=== PATIENT | female | born 1970 | race African-American/Black ===

== ENCOUNTER 2017-06-25 17:32 | Emergency (ER) | payer OTHER ==
[2017-06-25 18:15] LABS: #Basophils 0.1 thou/uL (0.0-0.2); #Eosinphils 0.4 thou/uL (0.0-0.7); #Lymphocytes 4.1 thou/uL (1.20-3.40); #Monocytes 0.6 thou/uL (0.11-0.59); #Neutrophils 4.2 thou/uL (1.40-6.50); %Lymphocytes 43.6 % (21.0-51.0); %Monocytes 6.6 % (0.0-10.0); Hematocrit 40.9 % (36.0-47.0); Red Blood Cell (RBC) Count 4.16 mill/uL (4.20-5.40); White Blood Cell (WBC) Count 9.4 thou/uL (4.8-10.8)
[2017-06-25 18:36] LABS: ALT (SGPT) 9 U/L (8-55); AST (SGOT) 15 U/L (5-34); Alkaline Phosphatase 107 U/L (40-150); Anion Gap 11 mmol/L (10-20); BUN (Urea Nitrogen) 6 mg/dL (7.0-18.7); Bilirubin, Total 0.2 mg/dL (0.2-1.2); Calc. Creatinine Clearance 0 mL/min (70-130); Carbon Dioxide 24 mmol/L (22-29); Chloride 106 mmol/L (98-107); Estimated GFR-MDRD 86; Globulin 4.6 g/dL (2.4-3.5); Protein, Total 8.5 g/dL (6.0-8.3)
--- NOTE | 2017-06-25 19:27 | CT ---
EXAM: NONCONTRAST HEAD CT 06/25/17 HISTORY: Altered mental status. History of aneurysm repair. Seizures. Patient is having left sided weakness a nd slurred speech. COMPARISON: 05/19/17 TECHNIQUE: Noncontrast head CT is performed from skull base to skull vertex. FINDINGS: No parenchymal hemorrhage. No extra-axial hematoma. No midline shift. Basilar cisterns are patent. S table malacic change involving the right frontal and parietal lobes, near the vertex. Remainder of t he cerebrum demonstrates preservation of cortical leblanc-white matter differentiation. Hypodensity in the left thalamus is noted and is similar to the previous examination. Calvarium is intact. Adequate aeration of the sinuses and mastoid air cells. IMPRESSION: No acute intracranial process. POS: [facility]
== END 2017-06-25 19:50 | disposition home or self-care (01) ==
LOC: ERS 17:32
DX: G83.84 Todd's paralysis (postepileptic) (principal); K21.9 Gastro-esophageal reflux disease without esophagitis; I10 Essential (primary) hypertension; Z79.899 Other long term (current) drug therapy
CPT/HCPCS: 36415; 70450; 80053; 85025

== ENCOUNTER 2017-10-13 23:24 | Emergency (ER) | payer OTHER ==
[2017-10-14 01:32] LABS: #Basophils 0.1 thou/uL (0.0-0.2); #Eosinphils 0.4 thou/uL (0.0-0.7); #Lymphocytes 3.6 thou/uL (1.20-3.40); #Monocytes 0.5 thou/uL (0.11-0.59); #Neutrophils 3.8 thou/uL (1.40-6.50); %Basophils 1.7 % (0.0-1.0); %Eosinophils 4.3 % (0.0-10.0); %Lymphocytes 42.9 % (21.0-51.0); %Monocytes 6.2 % (0.0-10.0); Hemoglobin 11.8 g/dL (12.0-16.0); Mean Corpuscular HGB CONC 32.4 g/dL (32.0-36.0); Mean Corpuscular Hemoglobin 30.8 pg (27.0-31.0); Mean Corpuscular Volume 94.9 fl (81.0-99.0); Mean Platelet Volume 7.4 fL (7.4-10.4); Platelet Count 322 thou/uL (130-400); RBC Distribution Width 12.6 % (11.5-14.5); Red Blood Cell (RBC) Count 3.83 mill/uL (4.20-5.40); White Blood Cell (WBC) Count 8.5 thou/uL (4.8-10.8)
[2017-10-14 01:51] LABS: Anion Gap 10 mmol/L (10-20); BUN (Urea Nitrogen) 7 mg/dL (7.0-18.7); Calc. Creatinine Clearance 0 mL/min (70-130); Calcium 8.5 mg/dL (7.8-10.44); Carbon Dioxide 24 mmol/L (22-29); Chloride 109 mmol/L (98-107); Estimated GFR-MDRD 86; Glucose 104 mg/dL (70-105); Potassium 3.4 mmol/L (3.5-5.1); Sodium 140 mmol/L (136-145)
[2017-10-14 04:37] LABS: Carbamazepine-Tegretol 3.1 ug/mL (4.0-12.0)
--- NOTE | 2017-10-14 07:26 | RAD ---
2 VIEWS CHEST: Date: 10/14/17 COMPARISON: None. HISTORY: Cough. FINDINGS: Two views of the chest show normal sized cardiomediastinal silhouette. There is no evidence of consol idation, mass, or pleural effusion. The bones are unremarkable. IMPRESSION: No evidence of acute cardiopulmonary disease. POS: [facility]
[2017-10-17 15:19] LABS: Topiramate (Topamax) Test 6.9 ug/mL (2.0-25.0)
== END 2017-10-14 03:40 | disposition home or self-care (01) ==
LOC: ERS 23:24
DX: Z03.89 Encounter for observation for other suspected diseases and conditions ruled out (principal); K21.9 Gastro-esophageal reflux disease without esophagitis; I10 Essential (primary) hypertension; Z79.899 Other long term (current) drug therapy
CPT/HCPCS: 36415; 71046; 80048; 80156; 80184; 80201; 85025

== ENCOUNTER 2017-10-19 21:06 | Emergency (ER) | payer OTHER ==
--- NOTE | 2017-10-19 22:33 | RAD ---
PORTABLE CHEST 10/19/17 PROVIDED CLINICAL HISTORY: Seizure. FINDINGS: Comparison is made with the study dated 10/14/17. Cardiac and mediastinal silhouette is within normal limits for portable technique. The lungs are hypo inflated but grossly clear. There is no pleural fluid or pneumothorax apparent. IMPRESSION: No evidence for an acute paloma pulmonary process. POS: [facility]
== END 2017-10-20 00:40 | disposition home or self-care (01) ==
LOC: ERS 21:06
DX: G40.909 Epilepsy, unspecified, not intractable, without status epilepticus (principal); K21.9 Gastro-esophageal reflux disease without esophagitis; I10 Essential (primary) hypertension
CPT/HCPCS: 71045; 93005

== ENCOUNTER 2018-02-08 18:49 | Emergency (ER) | payer OTHER ==
[2018-02-08 19:45] LABS: #Basophils 0.1 thou/uL (0.0-0.2); #Eosinphils 0.4 thou/uL (0.0-0.7); #Lymphocytes 3.8 thou/uL (1.20-3.40); #Monocytes 0.4 thou/uL (0.11-0.59); %Basophils 1.4 % (0.0-1.0); %Eosinophils 5.4 % (0.0-10.0); %Lymphocytes 49.6 % (21.0-51.0); %Monocytes 4.8 % (0.0-10.0); %Neutrophils 38.9 % (42.0-75.0); Hemoglobin 11.8 g/dL (12.0-16.0); Mean Platelet Volume 6.9 fL (7.4-10.4); Platelet Count 251 thou/uL (130-400); RBC Distribution Width 13.3 % (11.5-14.5); Red Blood Cell (RBC) Count 3.67 mill/uL (4.20-5.40); White Blood Cell (WBC) Count 7.7 thou/uL (4.8-10.8)
[2018-02-08 19:54] LABS: ALT (SGPT) 11 U/L (8-55); AST (SGOT) 17 U/L (5-34); Albumin 3.7 g/dL (3.5-5.0); Alkaline Phosphatase 97 U/L (40-150); Anion Gap 12 mmol/L (10-20); BUN (Urea Nitrogen) 7 mg/dL (7.0-18.7); Bilirubin, Total 0.3 mg/dL (0.2-1.2); Calc. Creatinine Clearance 0 mL/min (70-130); Calcium 8.6 mg/dL (7.8-10.44); Carbon Dioxide 20 mmol/L (22-29); Chloride 108 mmol/L (98-107); Estimated GFR-MDRD Greater than 90; Glucose 89 mg/dL (70-105); Potassium 3.3 mmol/L (3.5-5.1); Protein, Total 7.7 g/dL (6.0-8.3); Sodium 137 mmol/L (136-145)
== END 2018-02-08 22:19 | disposition home or self-care (01) ==
LOC: ERS 18:49
DX: R56.9 Unspecified convulsions (principal); K21.9 Gastro-esophageal reflux disease without esophagitis; I10 Essential (primary) hypertension; Z79.899 Other long term (current) drug therapy
CPT/HCPCS: 36415; 36416; 80053; 85025; 99284

== ENCOUNTER 2018-02-19 11:39 | Emergency (ER) | payer OTHER | END 2018-02-19 12:15 | disposition home or self-care (01) | LOC: ERS 11:39 | DX: G40.909 Epilepsy, unspecified, not intractable, without status epilepticus (principal); K21.9 Gastro-esophageal reflux disease without esophagitis; I10 Essential (primary) hypertension; Z79.899 Other long term (current) drug therapy | CPT/HCPCS: 99283 ==

== ENCOUNTER 2018-02-20 19:39 | Emergency (ER) | payer OTHER ==
[2018-02-20 20:15] LABS: #Basophils 0.1 thou/uL (0.0-0.2); #Eosinphils 0.3 thou/uL (0.0-0.7); #Lymphocytes 2.9 thou/uL (1.20-3.40); #Monocytes 0.4 thou/uL (0.11-0.59); #Neutrophils 2.6 thou/uL (1.40-6.50); %Basophils 1.6 % (0.0-1.0); %Eosinophils 5.5 % (0.0-10.0); %Lymphocytes 46.3 % (21.0-51.0); %Monocytes 5.6 % (0.0-10.0); %Neutrophils 41.1 % (42.0-75.0); Hemoglobin 13.6 g/dL (12.0-16.0); Mean Corpuscular HGB CONC 32.9 g/dL (32.0-36.0); Mean Corpuscular Hemoglobin 31.3 pg (27.0-31.0); Mean Corpuscular Volume 95.3 fl (81.0-99.0); Mean Platelet Volume 6.8 fL (7.4-10.4); Platelet Count 285 thou/uL (130-400); RBC Distribution Width 13.7 % (11.5-14.5); Red Blood Cell (RBC) Count 4.35 mill/uL (4.20-5.40); White Blood Cell (WBC) Count 6.3 thou/uL (4.8-10.8)
[2018-02-20 20:40] LABS: ALT (SGPT) 15 U/L (8-55); AST (SGOT) 19 U/L (5-34); Albumin 3.9 g/dL (3.5-5.0); Alkaline Phosphatase 112 U/L (40-150); Anion Gap 11 mmol/L (10-20); BUN (Urea Nitrogen) 8 mg/dL (7.0-18.7); Bilirubin, Total 0.3 mg/dL (0.2-1.2); Calc. Creatinine Clearance 0 mL/min (70-130); Calcium 8.8 mg/dL (7.8-10.44); Carbon Dioxide 20 mmol/L (22-29); Chloride 109 mmol/L (98-107); Estimated GFR-MDRD 71; Globulin 4.7 g/dL (2.4-3.5); Glucose 82 mg/dL (70-105); Protein, Total 8.6 g/dL (6.0-8.3); Sodium 136 mmol/L (136-145)
== END 2018-02-21 01:40 | disposition home or self-care (01) ==
LOC: ERS 19:39
DX: G40.909 Epilepsy, unspecified, not intractable, without status epilepticus (principal); K21.9 Gastro-esophageal reflux disease without esophagitis; I10 Essential (primary) hypertension; Z79.899 Other long term (current) drug therapy
CPT/HCPCS: 80053; 85025; 99406

== ENCOUNTER 2018-02-24 13:03 | Emergency (ER) | payer OTHER ==
[2018-02-24 13:56] LABS: #Basophils 0.1 thou/uL (0.0-0.2); #Eosinphils 0.3 thou/uL (0.0-0.7); #Lymphocytes 2.7 thou/uL (1.20-3.40); #Monocytes 0.4 thou/uL (0.11-0.59); #Neutrophils 2.3 thou/uL (1.40-6.50); %Eosinophils 5.3 % (0.0-10.0); %Lymphocytes 46.8 % (21.0-51.0); %Monocytes 7.4 % (0.0-10.0); %Neutrophils 39.5 % (42.0-75.0); Hemoglobin 13.4 g/dL (12.0-16.0); Mean Corpuscular HGB CONC 32.4 g/dL (32.0-36.0); Mean Corpuscular Hemoglobin 30.5 pg (27.0-31.0); Mean Corpuscular Volume 94.2 fl (81.0-99.0); Platelet Count 275 thou/uL (130-400); RBC Distribution Width 13.5 % (11.5-14.5); White Blood Cell (WBC) Count 5.7 thou/uL (4.8-10.8)
[2018-02-24 14:12] LABS: ALT (SGPT) 11 U/L (8-55); AST (SGOT) 15 U/L (5-34); Albumin 3.9 g/dL (3.5-5.0); Alkaline Phosphatase 108 U/L (40-150); Anion Gap 11 mmol/L (10-20); BUN (Urea Nitrogen) 10 mg/dL (7.0-18.7); Bilirubin, Total 0.3 mg/dL (0.2-1.2); Calc. Creatinine Clearance 0 mL/min (70-130); Calcium 8.9 mg/dL (7.8-10.44); Carbon Dioxide 21 mmol/L (22-29); Chloride 108 mmol/L (98-107); Estimated GFR-MDRD 71; Globulin 4.7 g/dL (2.4-3.5); Glucose 81 mg/dL (70-105); Potassium 3.8 mmol/L (3.5-5.1); Protein, Total 8.6 g/dL (6.0-8.3); Sodium 136 mmol/L (136-145)
--- NOTE | 2018-02-24 14:44 | CT ---
NONCONTRAST HEAD CT: Date: 02/24/18 HISTORY: Seizure. Fall. COMPARISON: 06/25/17. TECHNIQUE: A noncontrast head CT is performed from the skull base to the skull vertex. FINDINGS: Stable malacic and gliotic change involving the right frontal and parietal lobe near the vertex. Stab le hypoattenuation involving the right frontal subcortical white matter. No evidence of intraparenchy mal hemorrhage or extra-axial hematoma. No midline shift. Basilar cisterns are patent. No evidence of hydrocephalus. Adequate aeration of the sinuses and mastoid air cells, with the exception of the med ial left frontal sinus which is partially opacified due to mucus retention cyst. Calvarium is intact. Stable hypoattenuation involving the left frontal subcortical white matter. IMPRESSION: 1. No intracranial post-traumatic sequelae. 2. Stable malacic changes involving the right cerebrum. POS: [facility]
== END 2018-02-24 17:58 | disposition home or self-care (01) ==
LOC: ERS 13:03
DX: R56.9 Unspecified convulsions (principal); K21.9 Gastro-esophageal reflux disease without esophagitis; I10 Essential (primary) hypertension; Z79.899 Other long term (current) drug therapy
CPT/HCPCS: 36415; 70450; 80053; 85025

== ENCOUNTER 2018-04-09 13:48 | Observation (INO) | payer OTHER ==
--- NOTE | 2018-04-09 15:32 | CT ---
CT BRAIN: Date: 04/09/18 PROVIDED CLINICAL HISTORY: Seizure. FINDINGS: Comparison with 02/24/18. The ventricular system is unchanged in size and morphology. Encephalomalacia involving the right chichi etal region is redemonstrated. There is no evidence for intracranial hemorrhage or mass effect. The extracranial soft tissues and osseous structures demonstrate an unremarkable CT appearance. IMPRESSION: No evidence for intracranial hemorrhage or mass effect. POS: [facility]
[2018-04-09 15:53] LABS: Hemoglobin 13.3 g/dL (12.0-16.0); Mean Corpuscular HGB CONC 33.2 g/dL (32.0-36.0); Mean Corpuscular Hemoglobin 32.1 pg (27.0-31.0); Mean Corpuscular Volume 96.6 fL (78.0-98.0); Platelet Count 274 thou/uL (130-400); RBC Distribution Width 13.5 % (11.5-14.5); Red Blood Cell (RBC) Count 4.15 mill/uL (4.20-5.40); White Blood Cell (WBC) Count 6.8 thou/uL (4.8-10.8)
[2018-04-09 16:08] LABS: Eosinophils 7 % (0-10); Lymphocytes 53 % (21-51); MDiff Complete? YES; Monocytes 3 % (0-10); Neutrophil 35 % (42-75); PLT Morphology Comment Appears Adequate; RBC Morphology Normal
[2018-04-09 16:10] LABS: Bilirubin Negative (Negative); Blood, Urine Large (Negative); Clarity CLOUDY (Clear); Glucose, Urine (Dipstick) Negative (Negative); Leukocyte Small (Negative); Nitrite Positive (Negative); Protein, Urine (Dipstick) 30 mg/dL (Neg-Trace); Specific Gravity, Urine 1.016 (1.002-1.036)
[2018-04-09 16:12] LABS: Bacteria/HPF 2+ HPF (None Seen); Hyaline Casts/LPF 0-3 HYALINE CAST LPF (0-3 Hyaline); Pathc Cast-AUWi Flag 0.46 (0-2.49); Pregnancy Test - Urine (BHCG) Negative (Negative); Pregu Control Background? CLEAR/WHITE (CLR/WHITE); Pregu Control Bar Appear? YES (CONTROL BAR); RBC/HPF GREATER THAN 50-TNTC HPF (0-3); Specific Gravity 1.016 (1.002-1.036)
[2018-04-09 16:15] LABS: Amphetamine Not Detected (NotDetected); Barbiturates Screen Detected (NotDetected); Benzodiazepine Screen Not Detected (NotDetected); Cocaine Metabolite Screen Not Detected (NotDetected); Medtox Reader # READER 1; Methadone Not Detected (NotDetected); Methamphetamine Not Detected (NotDetected); Opiate Screen Not Detected (NotDetected); Phencyclidine (PCP) Not Detected (NotDetected); THC/Cannabinoid Screen Not Detected (NotDetected); Tricyclic Screen Not Detected (NotDetected)
[2018-04-09 16:16] LABS: Medtox Control Line Valid? VALID (VALID); Oxycodone Screen Not Detected (NotDetected)
[2018-04-09 16:17] LABS: ALT (SGPT) 14 U/L (8-55); AST (SGOT) 17 U/L (5-34); Albumin 4.1 g/dL (3.5-5.0); Alkaline Phosphatase 120 U/L (40-150); Anion Gap 12 mmol/L (10-20); BUN (Urea Nitrogen) 8 mg/dL (7.0-18.7); Bilirubin, Total 0.2 mg/dL (0.2-1.2); Calc. Creatinine Clearance 0 mL/min (70-130); Calcium 9.1 mg/dL (7.8-10.44); Carbon Dioxide 20 mmol/L (22-29); Chloride 108 mmol/L (98-107); Estimated GFR-MDRD 78; Globulin 4.6 g/dL (2.4-3.5); Glucose 77 mg/dL (70-105); Protein, Total 8.7 g/dL (6.0-8.3); Sodium 136 mmol/L (136-145)
[2018-04-09 16:23] LABS: Acetaminophen Less than 6.0 mcg/mL (10.0-30.0); Alcohol Less than 10 mg/dL (Less than 10); Salicylate Less than 8.0 mg/dL (15.0-30.0)
[2018-04-09] MEDS ORDERED: cefTRIAXone\\ROCEPHIN 1 GM VIAL ONE (21:22)
[2018-04-09 22:13] LABS: Carbamazepine-Tegretol 3.3 ug/mL (4.0-12.0)
[2018-04-09] MEDS ORDERED: Ondansetron ODT 4 MG TAB SL PRN (23:50)
[2018-04-09] MEDS ORDERED: Acetaminophen 325 MG TAB PO PRN (23:50)
[2018-04-09] MEDS ORDERED: Ondansetron HCl/PF 4 MG/2 ML Vial IVP PRN (23:50)
[2018-04-10 00:23] VITALS: BMI 25.9
[2018-04-10] MEDS ORDERED: Ondansetron HCl/PF 4 MG/2 ML Vial IVP PRN (01:00)
[2018-04-10] MEDS ORDERED: Ondansetron ODT 4 MG TAB PO PRN (01:00)
[2018-04-10] MEDS ORDERED: Acetaminophen 325 MG TAB PO PRN (01:00)
[2018-04-10] MEDS ORDERED: Sodium Chloride 0.9% 1,000 ML IV SCH (01:00)
--- NOTE | 2018-04-10 04:35 | HP ---
DATE OF ADMISSION: 04/09/2018 TIME OF SERVICE: 01:30. PRIMARY CARE PHYSICIAN: CHIEF COMPLAINT: Seizure. HISTORY OF PRESENT ILLNESS: Ms. Cordova is a 47-year-old -[place] female with history of seiz ure disorder followed by Dr. Mclaughlin, unknown when her last seizure was. Apparently, she had a seizu re about 24 hours prior to admission. It was witnessed by her son and lasted for approximately 30 mi nutes. It was tonic-clonic in all 4 extremities and had some urinary incontinence. No known tongue biting. She had really felt bad and weak since then. She was brought to the emergency room for eval uation. She denied any chest pain or shortness of breath. No nausea, vomiting, diarrhea, or constip ation. On my arrival, she was sleeping and difficult to arouse. She was not verbal at all. Per the nurse, she has been like this since arrival, has been somewhat combative and restart IVs that are not working. She has had no fevers here that are known. No other acute events. She does not give any further his tory. PAST MEDICAL HISTORY: 1. Seizure disorder, followed by Dr. Mclaughlin. 2. History of cerebrovascular accident. 3. History of brain aneurysm type 2. 4. Gastroesophageal reflux disease. 5. Hypertension, essential. PAST SURGICAL HISTORY: Brain surgery x2 for aneurysm. HOME MEDICATIONS: 1. Trokendi XR 100 mg p.o. b.i.d. 2. Lasix 20 mg daily. 3. Phenobarbital 64.8 mg x2 p.o. q.a.m. and 64.8 mg x 2.5 p.o. q.p.m. 4. Carbamazepine 1200 mg p.o. b.i.d. ALLERGIES: PENICILLIN, PHENERGAN and SULFA, reactions are unknown. FAMILY HISTORY: Unknown. SOCIAL HISTORY: Reportedly, has negative x3. The patient lives at home with family. REVIEW OF SYSTEMS: Not obtainable. The patient is nonconversant and not cooperative. PHYSICAL EXAMINATION: VITAL SIGNS: Temperature 98.6, pulse 66, blood pressure 129/69, respiration rate 18, satting 97% on room air. GENERAL: She is sleeping. She opens her eyes when stimulated, but does not speak. She closed her e yes quickly. HEENT: Normocephalic, atraumatic. Pupils look to be equal, round, and reacted to light bilaterally, mucous membranes are moist. Cannot assess for thrush. NECK: Supple. I do not appreciate any JVD or thyromegaly. No carotid bruits. LUNGS: Clear posteriorly. No wheezes, no rales or rhonchi. She does not take a deep breath for me, but since in the hospital takes very regular breath. CARDIOVASCULAR: She has normal cardiac and regular. She has normal S1, S2. No S3 or S4. No audibl e murmurs. ABDOMEN: Soft, it is nontender and nondistended. EXTREMITIES: No cyanosis, no clubbing. No edema. SKIN: Warm, moist, and well-perfused. No evidence of rashes or lesions. NEUROLOGIC: Not testable. The patient did open her eyes to verbal stimuli, does not appear to have any focal deficits, but was not cooperative 100%. LABORATORY DATA: Sodium 136, potassium 4.0, chloride 108, bicarbonate 20, BUN 8, creatinine 0.94, gl ucose of 73 and calcium 9.1. Liver function completely within normal limits. CBC showed a white cou nt of 6.8, hemoglobin 13.3, hematocrit of 40.1, platelet count is 274,000. She had 36% granulocytes, 53% lymphocytes. Urinalysis showed 11-20 white blood cells, and 4-6 epithelial cells, 2+ bacteria, positive nitrite, large blood. Tegretol level was 3.3, was normally in 4-12 and urine drug screen wa s positive for barbiturates. A CT scan of the brain negative for acute intracranial abnormalities. ASSESSMENT AND PLAN: 1. Seizure, and patient with known seizure disorder. Carbamazepine level was slightly low. We will continue her on her home medications, We will ask Dr. Mclaughlin or Dr. Saravia which I was medical certification specialist in the morning and see her and make adjustments as needed. 2. History of cerebrovascular accident. 3. History of brain aneurysm x2. 4. Gastroesophageal reflux disease. 5. Hypertension. We will continue home medications and follow up in the morning.
[2018-04-10 06:28] LABS: Anion Gap 13 mmol/L (10-20); BUN (Urea Nitrogen) 7 mg/dL (7.0-18.7); Calc. Creatinine Clearance 100 mL/min (70-130); Calcium 9.3 mg/dL (7.8-10.44); Carbon Dioxide 21 mmol/L (22-29); Chloride 108 mmol/L (98-107); Estimated GFR-MDRD 90; Glucose 79 mg/dL (70-105); Magnesium 2.1 mg/dL (1.6-2.6); Potassium 3.8 mmol/L (3.5-5.1); Sodium 138 mmol/L (136-145)
[2018-04-10 06:38] LABS: Eosinophils 5 % (0-10); Lymphocytes 54 % (21-51); MDiff Complete? YES; Mean Corpuscular HGB CONC 33.7 g/dL (32.0-36.0); Mean Corpuscular Hemoglobin 32.4 pg (27.0-31.0); Mean Corpuscular Volume 96.3 fL (78.0-98.0); Mean Platelet Volume 7.1 fL (7.4-10.4); Monocytes 4 % (0-10); Neutrophil 37 % (42-75); PLT Morphology Comment Appears Adequate; Platelet Count 263 thou/uL (130-400); RBC Distribution Width 13.7 % (11.5-14.5); Red Blood Cell (RBC) Count 4.31 mill/uL (4.20-5.40); White Blood Cell (WBC) Count 5.4 thou/uL (4.8-10.8)
[2018-04-10] MEDS ORDERED: cefTRIAXone\\ROCEPHIN 2 GM in Sodium Chloride 0.9% 100 ML IVPB SCH (09:00)
[2018-04-10] MEDS: Famotidine 20 MG TAB PO SCH ×2 (09:58→22:07)
[2018-04-10] MEDS: OXcarbazepine 300 MG TAB PO SCH ×2 (09:58→22:07)
[2018-04-10] MEDS: Topiramate 100 MG TAB PO SCH (10:00)
[2018-04-10] MEDS: PHENobarbital 32.4 MG TAB PO SCH (10:01)
--- NOTE | 2018-04-10 13:02 | PDOC.PN ---
- Subjective Encounter Start Date: 04/10/18 Encounter Start Time: 13:00 Subjective: feels better,denies any seizure since admission -: last seizure was 2 months ago,reports compliance w meds - Objective Resuscitation Status: Resuscitation Status FULL:Full Resuscitation MAR Reviewed: Yes Vital Signs & Weight: Vital Signs (12 hours) Temp Pulse Resp BP Pulse Ox 04/10/18 11:47 98.2 F 75 14 111/69 99 04/10/18 07:37 97.5 F L 72 20 103/68 98 04/10/18 07:30 97.5 F L 72 20 04/10/18 04:00 96.1 F L 62 16 112/72 99 Weight Weight 165 lb 8 oz I&O: 04/09/18 04/10/18 04/11/18 06:59 06:59 06:59 Intake Total 0 Balance 0 Result Diagrams: 04/10/18 05:57 04/10/18 05:57 Additional Labs: labs reviewed Phys Exam - Physical Examination Constitutional: NAD HEENT: PERRLA, moist MMs, sclera anicteric, oral pharynx no lesions Neck: no nodes, no JVD, supple, full ROM Respiratory: no wheezing, no rales, no rhonchi, clear to auscultation bilateral Cardiovascular: RRR, no significant murmur Gastrointestinal: soft, non-tender, no distention, positive bowel sounds Musculoskeletal: no edema, pulses present Neurological: non-focal, normal sensation, moves all 4 limbs Psychiatric: normal affect, A&O x 3 Dx/Plan (1) Breakthrough seizure Code(s): G40.919 - EPILEPSY, UNSP, INTRACTABLE, WITHOUT STATUS EPILEPTICUS Status: Acute (2) UTI (urinary tract infection) Status: Suspected (3) Seizure disorder Code(s): G40.909 - EPILEPSY, UNSP, NOT INTRACTABLE, WITHOUT STATUS EPILEPTICUS Status: Acute (4) HTN (hypertension) Code(s): I10 - ESSENTIAL (PRIMARY) HYPERTENSION Status: Acute - Plan continue antibiotics send urine for culture.sample looks contaminated.empiric ABx -: cont home meds.pt's story somewhat unreliable. -: seizure precautions. HD stable. -: awaiting neurology recs.Home if cleared * . Review of Systems - Review of Systems Constitutional: negative: fever, chills, sweats, weakness, malaise, other Respiratory: negative: Cough, Dry, Shortness of Breath, Hemoptysis, SOB with Excertion, Pleuritic Pain, Sputum, Wheezing Cardiovascular: negative: chest pain, palpitations, orthopnea, paroxysmal nocturnal dyspnea, edema, light headedness, other Gastrointestinal: negative: Nausea, Vomiting, Abdominal Pain, Diarrhea, Constipation, Melena, Hematochezia, Other Genitourinary: negative: Dysuria, Frequency, Incontinence, Hematuria, Retention , Other Musculoskeletal: negative: Neck Pain, Shoulder Pain, Arm Pain, Back Pain, Hand Pain, Leg Pain, Foot Pain, Other Neurological: negative: Weakness, Numbness, Incoordination, Change in Speech, Confusion, Seizures, Other - Medications/Allergies Allergies/Adverse Reactions: Allergies Allergy/AdvReac Type Severity Reaction Status Date / Time Penicillins Allergy Verified 07/17/13 09:47 phenytoin sodium Allergy Verified 07/17/13 09:46 [From Dilantin] Sulfa (Sulfonamide Allergy Verified 07/17/13 09:46 Antibiotics) Medications: Current Medications Acetaminophen (Tylenol) 650 mg PO Q4H PRN PRN Reason: Headache/Fever or Pain Famotidine (Pepcid) 20 mg PO BID [facility] Last Admin: 04/10/18 09:58 Dose: 20 mg Ceftriaxone Sodium 2 gm/ (Sodium Chloride) 100 mls @ 200 mls/hr IVPB Q24HR [facility] Sodium Chloride (Normal Saline 0.9%) 1,000 mls @ 75 mls/hr IV .[id number] [facility] Last Admin: 04/10/18 01:20 Dose: 1,000 mls Ondansetron HCl (Zofran Odt) 4 mg PO Q6H PRN PRN Reason: Nausea/Vomiting Ondansetron HCl (Zofran) 4 mg IVP Q6H PRN PRN Reason: Nausea/Vomiting Oxcarbazepine (Trileptal) 1,200 mg PO BID [facility] Last Admin: 04/10/18 09:58 Dose: 1,200 mg Phenobarbital (Phenobarbital) 162 mg PO QPM [facility] Phenobarbital (Phenobarbital) 129.6 mg PO QAM [facility] Last Admin: 04/10/18 10:01 Dose: 129.6 mg Sodium Chloride (Flush - Normal Saline) 10 ml IVF Q12HR [facility] Last Admin: 04/10/18 11:18 Dose: Not Given Sodium Chloride (Flush - Normal Saline) 10 ml IVF PRN PRN PRN Reason: Saline Flush Topiramate (Topamax) 100 mg PO DAILY [facility] Last Admin: 04/10/18 10:00 Dose: 100 mg
[2018-04-10] MEDS ORDERED: PHENobarbital 32.4 MG TAB PO SCH (21:00)
--- NOTE | 2018-04-11 01:12 | CON ---
DATE OF CONSULTATION: 04/10/2018 REFERRING PROVIDER: Hussain Weinstein M.D. REASON FOR CONSULTATION: Seizure. HISTORY OF PRESENT ILLNESS: Ms. Cordova is a 47-year-old -[place] female, who has been consul [facility] for evaluation of seizure. History is very limited, as patient is unable to provide and there ar e no family member present at bedside. Apparently, the patient has a history of seizure disorder. S he is on Trileptal and phenobarbital for her seizures. She is also taking Topamax. She sees Dr. Cuong Mclaughlin, as an outpatient for her seizures. She had an episode of seizure that was witnessed by he r son, after which she became extremely fatigued and tired and weak. As the weakness was not improvi ng, EMS was called and brought to the [facility] for further evaluation. Since being admitted to the hospital, she has not had any seizure over the past 24 hours. The nurse reports that she is confused and disoriented. PAST MEDICAL HISTORY: Significant for, 1. Seizure disorder. 2. History of stroke. 3. History of brain aneurysm x2. 4. GERD. 5. Hypertension. PAST SURGICAL HISTORY: Significant for brain surgery x2 for aneurysm. FAMILY HISTORY: Noncontributory. CURRENT MEDICATIONS: Include Topamax 100 mg twice a day; phenobarbital 64.8 mg x2, 2 tablets in a.m. and 2-1/2 tablets in p.m.; carbamazepine 200 mg b.i.d.; Lasix 20 mg daily. ALLERGIES: Include PENICILLIN, SULFA DRUGS, and PHENERGAN. SOCIAL HISTORY: She denies smoking, alcohol use, or illicit drug use. REVIEW OF SYSTEMS: Unable to perform. PHYSICAL EXAMINATION: VITAL SIGNS: Blood pressure 114/61, pulse of 72, temperature of 98.9, respirations of 20, O2 sats of 95% on room air. GENERAL: Well-developed, well-nourished, -[place]inese female, in no apparent distress. RESPIRATORY: Clear to auscultation bilaterally. CARDIOVASCULAR: Regular rate and rhythm. NEUROLOGIC EXAM: Mental status: The patient is awake, alert, oriented, x1. Speech and language: F luent speech. Cranial nerves: Pupils are 3 mm and reactive. Visual nazario are intact. Extraocular muscles are intact. No nystagmus noted. Face is symmetric. Tongue and uvula midline. Motor exam showed normal tone and bulk with a 5/5 strength in both upper and lower extremities. Sensory: Sensa tion is intact and symmetric. Deep tendon reflexes 2+ reflexes in both upper and lower extremities. Neurovascularly responses flexion bilaterally. Coordination intact to [id number] and finger tapping bilaterally. LABORATORY DATA: Labs were reviewed, which included CBC, CMP, urinalysis, and urine drug screen, car bamazepine level and barbiturates level, which is significant for urinalysis showing 11-20 wbc, posit erlinda nitrite, large blood in urine, 2+ bacteria, otherwise negative. IMAGING STUDIES: CT head without contrast was reviewed, which showed no acute intracranial abnormali ty. IMPRESSION: 1. Recurrent seizure. 2. Urinary tract infection. Ms. Cordova is a pleasant 47-year-old -[place] female, who presented with the seizure-like epi sode. This may have been triggered by urinary tract infection. At this time, we would recommend con tinuing on current antiepileptic medications. If she remains stable and asymptomatic without any sei zures, then she is okay to be discharged to home and follow up with Dr. Mclaughlin as an outpatient. Thank you for consultation.
[2018-04-11 07:43] VITALS: TEMP 97.8
[2018-04-11] MEDS: OXcarbazepine 300 MG TAB PO SCH (09:21)
[2018-04-11] MEDS: Topiramate 100 MG TAB PO SCH (09:25)
[2018-04-11] MEDS: PHENobarbital 32.4 MG TAB PO SCH (09:26)
[2018-04-11] MEDS: Famotidine 20 MG TAB PO SCH (09:26)
[2018-04-11 11:50] VITALS: BP 92/55
--- NOTE | 2018-04-11 14:30 | PDOC.PN ---
- Subjective Encounter Start Date: 04/11/18 Encounter Start Time: 14:28 Subjective: feels Ok. no new complaints -: no seizures since admission - Objective Resuscitation Status: Resuscitation Status FULL:Full Resuscitation MAR Reviewed: Yes Vital Signs & Weight: Vital Signs (12 hours) Temp Pulse Pulse Resp BP BP Pulse Ox 04/11/18 09:04 68 92/55 L 04/11/18 08:35 97.8 F 70 16 04/11/18 07:14 97.8 F 70 16 120/71 99 04/11/18 03:06 97.5 F L 79 20 105/67 99 Weight Weight 162 lb 11.2 oz I&O: 04/10/18 04/11/18 04/12/18 06:59 06:59 06:59 Intake Total 0 240 Balance 0 240 Result Diagrams: 04/10/18 05:57 04/10/18 05:57 Additional Labs: Microbiology 04/09/18 16:02 Urine voided Urine Culture - Preliminary Escherichia coli labs reviewed Phys Exam - Physical Examination Constitutional: NAD HEENT: PERRLA, moist MMs, sclera anicteric, oral pharynx no lesions Neck: no nodes, no JVD, supple, full ROM Respiratory: no wheezing, no rales, no rhonchi, clear to auscultation bilateral Cardiovascular: RRR, no significant murmur, no rub Gastrointestinal: soft, non-tender, no distention, positive bowel sounds Musculoskeletal: no edema, pulses present Neurological: non-focal, normal sensation, moves all 4 limbs Psychiatric: normal affect, A&O x 3 Skin: no rash Dx/Plan (1) Breakthrough seizure Code(s): G40.919 - EPILEPSY, UNSP, INTRACTABLE, WITHOUT STATUS EPILEPTICUS Status: Acute (2) UTI (urinary tract infection) Status: Suspected (3) Seizure disorder Code(s): G40.909 - EPILEPSY, UNSP, NOT INTRACTABLE, WITHOUT STATUS EPILEPTICUS Status: Acute (4) HTN (hypertension) Code(s): I10 - ESSENTIAL (PRIMARY) HYPERTENSION Status: Acute - Plan continue antibiotics, out of bed/ambulate OK to DC. PO ABx for UTI -: pr's meds checked and she was able to tell which ones she takes & how much -: All meds have refills on them -: OP f/u w Neurology -: hemodynamically stable * . Review of Systems - Review of Systems Constitutional: negative: fever, chills, sweats, weakness, malaise, other Respiratory: negative: Cough, Dry, Shortness of Breath, Hemoptysis, SOB with Excertion, Pleuritic Pain, Sputum, Wheezing Cardiovascular: negative: chest pain, palpitations, orthopnea, paroxysmal nocturnal dyspnea, edema, light headedness, other Gastrointestinal: negative: Nausea, Vomiting, Abdominal Pain, Diarrhea, Constipation, Melena, Hematochezia, Other Genitourinary: negative: Dysuria, Frequency, Incontinence, Hematuria, Retention , Other Musculoskeletal: negative: Neck Pain, Shoulder Pain, Arm Pain, Back Pain, Hand Pain, Leg Pain, Foot Pain, Other Skin: negative: Rash, Lesions, Braulio, Bruising, Other Neurological: negative: Weakness, Numbness, Incoordination, Change in Speech, Confusion, Seizures, Other - Medications/Allergies Allergies/Adverse Reactions: Allergies Allergy/AdvReac Type Severity Reaction Status Date / Time Penicillins Allergy Verified 07/17/13 09:47 phenytoin sodium Allergy Verified 07/17/13 09:46 [From Dilantin] Sulfa (Sulfonamide Allergy Verified 07/17/13 09:46 Antibiotics) Medications: Current Medications Acetaminophen (Tylenol) 650 mg PO Q4H PRN PRN Reason: Headache/Fever or Pain Famotidine (Pepcid) 20 mg PO BID [facility] Last Admin: 04/11/18 09:26 Dose: 20 mg Levofloxacin (Levaquin) 500 mg PO 1500 [facility] Last Admin: 04/10/18 15:23 Dose: 500 mg Ondansetron HCl (Zofran Odt) 4 mg PO Q6H PRN PRN Reason: Nausea/Vomiting Ondansetron HCl (Zofran) 4 mg IVP Q6H PRN PRN Reason: Nausea/Vomiting Oxcarbazepine (Trileptal) 1,200 mg PO BID [facility] Last Admin: 04/11/18 09:21 Dose: 1,200 mg Phenobarbital (Phenobarbital) 162 mg PO QPM [facility] Last Admin: 04/10/18 22:08 Dose: 162 mg Phenobarbital (Phenobarbital) 129.6 mg PO QAM [facility] Last Admin: 04/11/18 09:26 Dose: 129.6 mg Sodium Chloride (Flush - Normal Saline) 10 ml IVF Q12HR [facility] Last Admin: 04/11/18 10:44 Dose: Not Given Sodium Chloride (Flush - Normal Saline) 10 ml IVF PRN PRN PRN Reason: Saline Flush Topiramate (Topamax) 100 mg PO DAILY [facility] Last Admin: 04/11/18 09:25 Dose: 100 mg
--- NOTE | 2018-04-12 19:30 | DIS ---
DATE OF ADMISSION: 04/10/2018 DATE OF DISCHARGE: 04/11/2018 CONDITION AT THE TIME OF DISCHARGE: Stable and improved. DISCHARGE DISPOSITION: Home. DISCHARGE DIAGNOSES: 1. Breakthrough seizures. 2. History of seizure disorder. 3. Urinary tract infection. 4. Hypertension. DISCHARGE MEDICATIONS: Resume home medications as per the H&P. New medication, levofloxacin 500 mg p.o. daily for 7 days. She is currently on following medications, topiramate 100 mg p.o. b.i.d., phe nobarbital 64.8 mg p.o. b.i.d., Trileptal 1200 mg p.o. b.i.d., Lasix 20 mg daily. INHOUSE CONSULTATIONS: Neurology, Dr. Shruthi Saravia. PROCEDURES DONE IN THE HOSPITAL: CT scan of the brain which is negative for any acute hemorrhage or infarction. HOSPITAL COURSE: Ms. Cordova is a 47-year-old female with known history of seizure disorder, who pres ented to the emergency room after she has a witnessed tonic-clonic seizure. She was admitted for fur ther workup. She was hemodynamically stable upon presentation. A CT scan of the brain was done in [facility] emergency room which was unremarkable. Her urinalysis did suggest a urinary tract infection. She was started on empiric antibiotics, but otherwise her blood work was unremarkable. Neurology was co nsulted as well. HOSPITAL COURSE: The patient did not have any documented seizure while in the hospital. When I saw her, she was awake, alert, oriented x3, though some behavioral changes were noticed, which might be i ndication of underlying psychiatric disorder. Nevertheless, she was seen by Dr. Saravia from Neurology department. He recommended continuation of her home medications. I checked all of her medication an d she was able to recall and tell me exactly which medication and how much she takes. Also, it was d iscussed with her family who agree that she is able to take her medications as indicated. She is an established patient of Dr. Mclaughlin at the [facility] and is requested to go back to him for fur ther recommendations. By the time of discharge, she is stable without any seizures and is cleared by Neurology for discharg e. PHYSICAL EXAMINATION: She was seen and examined prior to discharge. Please see hospitalist progress note from the date of discharge for further detail. Total time spent in the discharge of this patient 32 minutes.
== END 2018-04-11 17:15 | disposition home or self-care (01) ==
LOC: ERS 13:48 → 2SE 22:49
PROVIDERS: ADMIT Internal Medicine Infectious Disease; ATTEND Internal Medicine Infectious Disease
DX: G40.909 Epilepsy, unspecified, not intractable, without status epilepticus (principal); N39.0 Urinary tract infection, site not specified; I10 Essential (primary) hypertension; Z88.0 Allergy status to penicillin; Z88.2 Allergy status to sulfonamides; Z79.899 Other long term (current) drug therapy
CPT/HCPCS: 36415; 70450; 80048; 80053; 80156; 80306; 80307; 81003; 81015; 81025; 82945; 83735; 85025; 87077; 87086; 87186; 96365; G0378; G8978-GP-CM; G8979-GP-CK; G8987-GO-CL; G8988-GO-CK; J0696

== ENCOUNTER 2018-04-19 19:33 | Emergency (ER) | payer OTHER ==
--- NOTE | 2018-04-19 23:31 | RAD ---
FOUR VIEWS RIGHT KNEE: 04/19/18 HISTORY: Pain x10 days. COMPARISON: None. FINDINGS: No joint effusion. No fracture or malalignment. Mild loss of joint space height along the medial comp artment. IMPRESSION: 1. No posttraumatic change or acute abnormality in the right knee. 2. Mild degenerative changes in the medial compartment. POS: [facility]
== END 2018-04-20 00:25 | disposition home or self-care (01) ==
LOC: ERS 19:33
DX: S80.01XA Contusion of right knee, initial encounter (principal); K21.9 Gastro-esophageal reflux disease without esophagitis; I10 Essential (primary) hypertension; W19.XXXA Unspecified fall, initial encounter

== ENCOUNTER 2018-05-10 21:00 | Emergency (ER) | payer OTHER ==
[2018-05-10 22:10] LABS: #Basophils 0.1 thou/uL (0.0-0.2); #Eosinphils 0.6 thou/uL (0.0-0.7); #Lymphocytes 3.9 thou/uL (1.20-3.40); #Monocytes 0.6 thou/uL (0.11-0.59); #Neutrophils 3.5 thou/uL (1.40-6.50); %Basophils 1.5 % (0.0-1.0); %Eosinophils 7.2 % (0.0-10.0); %Lymphocytes 45.2 % (21.0-51.0); %Monocytes 6.6 % (0.0-10.0); %Neutrophils 39.6 % (42.0-75.0); Mean Corpuscular HGB CONC 34.5 g/dL (32.0-36.0); Mean Corpuscular Hemoglobin 33.8 pg (27.0-31.0); Mean Corpuscular Volume 97.9 fL (78.0-98.0); Platelet Count 234 thou/uL (130-400); RBC Distribution Width 12.9 % (11.5-14.5); Red Blood Cell (RBC) Count 3.55 mill/uL (4.20-5.40); White Blood Cell (WBC) Count 8.7 thou/uL (4.8-10.8)
[2018-05-10 22:29] LABS: ALT (SGPT) 11 U/L (8-55); AST (SGOT) 16 U/L (5-34); Albumin 3.6 g/dL (3.5-5.0); Alkaline Phosphatase 89 U/L (40-150); Anion Gap 11 mmol/L (10-20); BUN (Urea Nitrogen) 4 mg/dL (7.0-18.7); Bilirubin, Total 0.5 mg/dL (0.2-1.2); Calc. Creatinine Clearance 0 mL/min (70-130); Calcium 8.4 mg/dL (7.8-10.44); Carbamazepine-Tegretol 3.8 ug/mL (4.0-12.0); Carbon Dioxide 24 mmol/L (22-29); Chloride 107 mmol/L (98-107); Estimated GFR-MDRD 90; Globulin 3.8 g/dL (2.4-3.5); Glucose 90 mg/dL (70-105); Protein, Total 7.4 g/dL (6.0-8.3); Sodium 139 mmol/L (136-145)
[2018-05-10 22:34] LABS: Potassium 2.9 mmol/L (3.5-5.1)
[2018-05-10] MEDS ORDERED: Potassium Chloride 20 MEQ TAB ONE (23:07)
== END 2018-05-11 00:39 | disposition home or self-care (01) ==
LOC: ERS 21:00
DX: R56.9 Unspecified convulsions (principal); E87.6 Hypokalemia; K21.9 Gastro-esophageal reflux disease without esophagitis; I10 Essential (primary) hypertension
CPT/HCPCS: 36415; 80053; 80156; 84146; 85025; 99284

== ENCOUNTER 2018-08-02 20:25 | Emergency (ER) | payer OTHER ==
[2018-08-02 21:42] LABS: #Basophils 0.1 thou/uL (0.0-0.2); #Eosinphils 0.5 thou/uL (0.0-0.7); #Lymphocytes 4.4 thou/uL (1.20-3.40); #Monocytes 0.5 thou/uL (0.11-0.59); #Neutrophils 3.9 thou/uL (1.40-6.50); %Basophils 1.1 % (0.0-1.0); %Lymphocytes 46.9 % (21.0-51.0); Hemoglobin 12.2 g/dL (12.0-16.0); Mean Corpuscular HGB CONC 32.1 g/dL (32.0-36.0); Mean Corpuscular Hemoglobin 31.3 pg (27.0-31.0); Mean Corpuscular Volume 97.6 fL (78.0-98.0); Mean Platelet Volume 7.7 fL (7.4-10.4); Platelet Count 219 thou/uL (130-400); RBC Distribution Width 12.9 % (11.5-14.5); Red Blood Cell (RBC) Count 3.88 mill/uL (4.20-5.40); White Blood Cell (WBC) Count 9.4 thou/uL (4.8-10.8)
[2018-08-02 22:02] LABS: Bilirubin Negative (Negative); Blood, Urine Negative (Negative); Clarity CLEAR (Clear); Glucose, Urine (Dipstick) Negative (Negative); Leukocyte Trace (Negative); Nitrite Negative (Negative); Protein, Urine (Dipstick) Negative (Neg-Trace); Specific Gravity, Urine 1.021 (1.002-1.036)
[2018-08-02 22:04] LABS: Bacteria/HPF None Seen HPF (None Seen); Hyaline Casts/LPF 0-3 HYALINE CAST LPF (0-3 Hyaline); WBC/HPF 0-3 HPF (0-3)
[2018-08-02 22:10] LABS: ALT (SGPT) 10 U/L (8-55); AST (SGOT) 14 U/L (5-34); Albumin 3.6 g/dL (3.5-5.0); Alkaline Phosphatase 86 U/L (40-150); BUN (Urea Nitrogen) 8 mg/dL (7.0-18.7); Bilirubin, Total 0.2 mg/dL (0.2-1.2); Calc. Creatinine Clearance 0 mL/min (70-130); Calcium 8.4 mg/dL (7.8-10.44); Carbon Dioxide 18 mmol/L (22-29); Chloride 112 mmol/L (98-107); Estimated GFR-MDRD 77; Globulin 4.1 g/dL (2.4-3.5); Glucose 77 mg/dL (70-105); Potassium 3.7 mmol/L (3.5-5.1); Protein, Total 7.7 g/dL (6.0-8.3); Sodium 139 mmol/L (136-145)
[2018-08-02 22:12] LABS: Carbamazepine-Tegretol 3.1 ug/mL (4.0-12.0)
[2018-08-02 22:55] LABS: Anion Gap 13 mmol/L (10-20)
== END 2018-08-02 22:45 | disposition home or self-care (01) ==
LOC: ERS 20:25
DX: R56.9 Unspecified convulsions (principal); I10 Essential (primary) hypertension; K21.9 Gastro-esophageal reflux disease without esophagitis; Z79.899 Other long term (current) drug therapy
CPT/HCPCS: 36415; 80053; 80156; 81003; 81015; 85025; 94760

== ENCOUNTER 2018-08-09 15:48 | Emergency (ER) | payer OTHER ==
--- NOTE | 2018-08-09 16:39 | CT ---
CT OF THE BRAIN WITHOUT CONTRAST: 08/09/18 INDICATION: History of seizure activity. COMPARISON: Prior exam dated 04/09/18. FINDINGS: There is stable encephalomalacia involving the right parietal lobe. Septum pellucidum and third ventr icle are midline. No acute infarct, hemorrhage, or hydrocephalus is present. Skull and extracranial s oft tissues are unremarkable appearing. There is mild mucosal thickening within the ethmoid air cells . IMPRESSION: 1. No acute intracranial abnormality. 2. Mild paranasal sinus disease. POS: [facility]
[2018-08-09 16:51] LABS: #Basophils 0.1 thou/uL (0.0-0.2); #Eosinphils 0.9 thou/uL (0.0-0.7); #Lymphocytes 3.7 thou/uL (1.20-3.40); #Monocytes 0.5 thou/uL (0.11-0.59); #Neutrophils 3.6 thou/uL (1.40-6.50); %Basophils 0.8 % (0.0-1.0); %Eosinophils 10.6 % (0.0-10.0); %Lymphocytes 42.1 % (21.0-51.0); %Monocytes 5.5 % (0.0-10.0); %Neutrophils 40.9 % (42.0-75.0); BHCG - Serum Negative (NEGATIVE); Hemoglobin 13.8 g/dL (12.0-16.0); Mean Corpuscular HGB CONC 32.3 g/dL (32.0-36.0); Mean Corpuscular Hemoglobin 31.9 pg (27.0-31.0); Mean Corpuscular Volume 98.7 fL (78.0-98.0); Mean Platelet Volume 7.5 fL (7.4-10.4); Platelet Count 283 thou/uL (130-400); Pregs Control Background? CLEAR/WHITE (CLR/WHITE); Pregs Control Bar Appear? YES (CONTROL BAR); RBC Distribution Width 12.8 % (11.5-14.5); Red Blood Cell (RBC) Count 4.32 mill/uL (4.20-5.40); White Blood Cell (WBC) Count 8.8 thou/uL (4.8-10.8)
[2018-08-09 17:07] LABS: CKMB 0.6 ng/mL (0-6.6); Troponin I Less than 0.010 ng/mL (< 0.028)
[2018-08-09 17:08] LABS: ALT (SGPT) 13 U/L (8-55); AST (SGOT) 15 U/L (5-34); Albumin 4.1 g/dL (3.5-5.0); Alkaline Phosphatase 94 U/L (40-150); Anion Gap 9 mmol/L (10-20); BUN (Urea Nitrogen) 7 mg/dL (7.0-18.7); Bilirubin, Total 0.4 mg/dL (0.2-1.2); Calc. Creatinine Clearance 0 mL/min (70-130); Carbon Dioxide 23 mmol/L (22-29); Chloride 109 mmol/L (98-107); Estimated GFR-MDRD 86; Globulin 4.5 g/dL (2.4-3.5); Glucose 107 mg/dL (70-105); Potassium 3.5 mmol/L (3.5-5.1); Protein, Total 8.6 g/dL (6.0-8.3); Sodium 137 mmol/L (136-145)
--- NOTE | 2018-08-09 18:17 | CT ---
CT CERVICAL SPINE NONCONTRAST: 08/09/18 HISTORY: Fall. Neck injury. FINDINGS: No comparison. Vertebral body heights and alignment are maintained. Cervicothoracic junction intact. Mild osteophytosis. No acute fracture or dislocation. IMPRESSION: No acute osseous abnormalities are demonstrated. POS: [facility]
--- NOTE | 2018-08-11 17:05 | EKG ---
Test Reason : Blood Pressure : / mmHG Vent. Rate : 079 BPM Atrial Rate : 079 BPM P-R Int : 120 ms QRS Dur : 082 ms QT Int : 368 ms P-R-T Axes : 078 043 004 degrees QTc Int : 421 ms Normal sinus rhythm Normal ECG Confirmed by JAI GALO ([id number]), manager editorial LISA CHIN ([id number]) on 08/11/2018 5:05:06 PM Referred By: Confirmed By:JAI GALO
== END 2018-08-09 21:15 | disposition home or self-care (01) ==
LOC: ERS 15:48
DX: G40.909 Epilepsy, unspecified, not intractable, without status epilepticus (principal); I10 Essential (primary) hypertension; K21.9 Gastro-esophageal reflux disease without esophagitis
CPT/HCPCS: 36415; 70450; 72125; 80053; 80183; 82553; 84146; 84484; 84703; 85025; 93005

== ENCOUNTER 2018-08-27 20:39 | Emergency (ER) | payer OTHER ==
[~2018-08-27 20:39] MED LIST: Iopamidol 370 76% 100 ML VIAL ONE
[2018-08-27 21:14] LABS: #Basophils 0.2 thou/uL (0.0-0.2); #Eosinphils 0.8 thou/uL (0.0-0.7); #Lymphocytes 4.2 thou/uL (1.20-3.40); #Monocytes 0.7 thou/uL (0.11-0.59); #Neutrophils 3.5 thou/uL (1.40-6.50); %Basophils 2.1 % (0.0-1.0); %Eosinophils 8.2 % (0.0-10.0); %Lymphocytes 44.6 % (21.0-51.0); %Monocytes 7.5 % (0.0-10.0); %Neutrophils 37.6 % (42.0-75.0); Hemoglobin 12.6 g/dL (12.0-16.0); Mean Corpuscular HGB CONC 33.2 g/dL (32.0-36.0); Mean Corpuscular Hemoglobin 32.3 pg (27.0-31.0); Mean Corpuscular Volume 97.2 fL (78.0-98.0); Mean Platelet Volume 7.7 fL (7.4-10.4); Platelet Count 288 thou/uL (130-400); RBC Distribution Width 12.7 % (11.5-14.5); Red Blood Cell (RBC) Count 3.92 mill/uL (4.20-5.40); White Blood Cell (WBC) Count 9.4 thou/uL (4.8-10.8)
[2018-08-27 21:21] LABS: INR-International Normal Ratio 1.1; PTT 29.8 SEC (22.9-36.1); Prothrombin Time 14.3 SEC (12.0-14.7)
--- NOTE | 2018-08-27 21:34 | CT ---
CT BRAIN WITHOUT CONTRAST: Comparison: 08-09-18 History: Level I stroke with left sided weakness and slurred speech. Technique: Multiple contiguous axial images were obtained in a CT of the brain without contrast. FINDINGS: There is stable encephalomalacia in the right parietal lobe. No new large confluent infarctions seen. There is no evidence of hydrocephalus, intracranial hemorrhage or extraaxial fluid collections. The calvarium and overlying soft tissues are unremarkable. The visualized paranasal sinuses and masto id air cells are well aerated. IMPRESSION: No evidence of acute intracranial abnormality. Dr. Magaña notified of the findings at 8:47 p.m. on . POS: [facility]
[2018-08-27 21:36] LABS: ALT (SGPT) 10 U/L (8-55); AST (SGOT) 17 U/L (5-34); Albumin 3.9 g/dL (3.5-5.0); Alkaline Phosphatase 84 U/L (40-150); Anion Gap 11 mmol/L (10-20); BUN (Urea Nitrogen) 5 mg/dL (7.0-18.7); Bilirubin, Total 0.3 mg/dL (0.2-1.2); CK (CPK) 98 U/L (29-168); Calc. Creatinine Clearance 0 mL/min (70-130); Carbon Dioxide 19 mmol/L (22-29); Chloride 109 mmol/L (98-107); Estimated GFR-MDRD 80; Globulin 4.4 g/dL (2.4-3.5); Glucose 105 mg/dL (70-105); Potassium 3.9 mmol/L (3.5-5.1); Protein, Total 8.3 g/dL (6.0-8.3); Sodium 135 mmol/L (136-145)
[2018-08-27 21:41] LABS: CKMB 0.7 ng/mL (0-6.6); Troponin I Less than 0.010 ng/mL (< 0.028)
--- NOTE | 2018-08-27 22:45 | CT ---
CTA OF THE NECK WITH CONTRAST CTA OF THE HEAD WITH CONTRAST: Comparison: None. History: Stroke like symptoms with slurred speech and left sided weakness. Technique: 1. Multiple contiguous axial images were obtained in a CTA of the neck with contrast. 3D sagittal and coronal MIP reformats were performed. 2. Multiple contiguous axial images were obtained in a CTA of the head with contrast. 3D sagittal and coronal MIP reformats were performed. FINDINGS: CTA NECK: The lung apices are unremarkable. No cervical adenopathy is seen. Mild degenerative changes are seen in the spine. The thyroid and salivary glands are unremarkable. Posterior to the right lobe of the thyroid there is an enhancing 7 mm mass like structure which could represent a parathyroid gland. The common carotid arteries have a normal origin from the aortic arch. No significant atherosclerotic disease is seen in the common carotid arteries. These branches have a normal appearing internal and external carotid arteries. No significant stenosis per NASCET criteria is seen on either side. Both vertebral arteries form a normal appearing basilar artery. No significant atherosclerotic diseas e is seen in the cervical vertebral arteries. CTA HEAD: Bilateral intracranial internal carotid arteries are normal in caliber and branch in the normal anter ior and middle cerebral arteries. There is no evidence of aneurysmal dilation, focal stenosis or occl usion in the anterior circulation. Vertebral arteries: There is a normal appearing basilar artery. There appear to be bilateral posterio r communicating arteries. The posterior cerebral arteries cerebellar arteries and patent. There is no evidence of focal stenosis, occlusion, or aneurysmal dilatation in the posterior circulation. IMPRESSION: 1. No carotid vascular abnormality in the neck. 2. Possible small mass posterior to the right thyroid lobe could represent a parathyroid adenoma. Dyan luate calcium levels and parathyroid hormone status. 3. Unremarkable CTA of the head. POS: [facility]
--- NOTE | 2018-08-27 23:04 | RAD ---
SINGLE VIEW OF THE CHEST: Comparison: 10-19-17 History: Slurred speech, cough. FINDINGS: Single view of the chest shows a normal sized cardiomediastinal silhouette. There is no evidence of c onsolidation, mass, or pleural effusion. The bones are unremarkable. IMPRESSION: No evidence of acute cardiopulmonary disease. POS: [facility]
[2018-08-27 23:13] LABS: Bilirubin Negative (Negative); Blood, Urine Negative (Negative); Clarity CLEAR (Clear); Glucose, Urine (Dipstick) Negative (Negative); Leukocyte Negative (Negative); Nitrite Negative (Negative); Protein, Urine (Dipstick) Negative (Neg-Trace); Specific Gravity, Urine 1.027 (1.002-1.036); pH, Urine 7.5 (5.0-9.0)
[2018-08-27 23:15] LABS: Pregnancy Test - Urine (BHCG) Negative (Negative); Pregu Control Background? CLEAR/WHITE (CLR/WHITE); Pregu Control Bar Appear? YES (CONTROL BAR); Specific Gravity 1.027 (1.002-1.036)
== END 2018-08-28 18:20 | disposition home or self-care (01) ==
LOC: ERS 20:39
DX: R41.82 Altered mental status, unspecified (principal); G40.909 Epilepsy, unspecified, not intractable, without status epilepticus; Z91.14 Patient's other noncompliance with medication regimen; I10 Essential (primary) hypertension; K21.9 Gastro-esophageal reflux disease without esophagitis; Z79.899 Other long term (current) drug therapy
CPT/HCPCS: 36415; 36416; 51701; 70450; 70496; 70498; 71045; 80053; 81003; 81025; 82140; 82550; 82553; 84484; 85025; 85610; 85730; 93005

== ENCOUNTER 2018-09-26 00:57 | Emergency (ER) | payer OTHER ==
[2018-09-26 01:39] LABS: #Basophils 0.2 thou/uL (0.0-0.2); #Eosinphils 0.6 thou/uL (0.0-0.7); #Lymphocytes 4.4 thou/uL (1.20-3.40); #Monocytes 0.6 thou/uL (0.11-0.59); #Neutrophils 3.8 thou/uL (1.40-6.50); %Basophils 1.8 % (0.0-1.0); %Eosinophils 5.9 % (0.0-10.0); %Lymphocytes 46.1 % (21.0-51.0); %Monocytes 6.5 % (0.0-10.0); %Neutrophils 39.7 % (42.0-75.0); Hemoglobin 12.3 g/dL (12.0-16.0); Mean Corpuscular HGB CONC 33.1 g/dL (32.0-36.0); Mean Corpuscular Volume 96.8 fL (78.0-98.0); Mean Platelet Volume 7.5 fL (7.4-10.4); Platelet Count 266 thou/uL (130-400); RBC Distribution Width 12.5 % (11.5-14.5); Red Blood Cell (RBC) Count 3.84 mill/uL (4.20-5.40); White Blood Cell (WBC) Count 9.5 thou/uL (4.8-10.8)
[2018-09-26 01:58] LABS: ALT (SGPT) 11 U/L (8-55); AST (SGOT) 16 U/L (5-34); Albumin 3.8 g/dL (3.5-5.0); Alkaline Phosphatase 97 U/L (40-150); Anion Gap 13 mmol/L (10-20); BUN (Urea Nitrogen) 13 mg/dL (7.0-18.7); Bilirubin, Total 0.2 mg/dL (0.2-1.2); Calc. Creatinine Clearance 0 mL/min (70-130); Calcium 9.2 mg/dL (7.8-10.44); Carbon Dioxide 24 mmol/L (22-29); Chloride 107 mmol/L (98-107); Estimated GFR-MDRD 70; Globulin 4.4 g/dL (2.4-3.5); Glucose 84 mg/dL (70-105); Protein, Total 8.2 g/dL (6.0-8.3); Sodium 140 mmol/L (136-145)
[2018-09-26 02:50] LABS: Amphetamine Not Detected (NotDetected); Barbiturates Screen Detected (NotDetected); Benzodiazepine Screen Not Detected (NotDetected); Cocaine Metabolite Screen Not Detected (NotDetected); Medtox Control Line Valid? VALID (VALID); Medtox Reader # READER 1; Methadone Not Detected (NotDetected); Methamphetamine Not Detected (NotDetected); Opiate Screen Not Detected (NotDetected); Oxycodone Screen Not Detected (NotDetected); Phencyclidine (PCP) Not Detected (NotDetected); THC/Cannabinoid Screen Not Detected (NotDetected); Tricyclic Screen Not Detected (NotDetected)
== END 2018-09-26 06:09 | disposition home or self-care (01) ==
LOC: ERS 00:57
DX: R56.9 Unspecified convulsions (principal); I10 Essential (primary) hypertension; K21.9 Gastro-esophageal reflux disease without esophagitis
CPT/HCPCS: 36415; 80053; 80306; 85025; 99284

== ENCOUNTER 2018-10-04 13:01 | Emergency (ER) | payer OTHER ==
[2018-10-04 14:18] LABS: #Basophils 0.1 thou/uL (0.0-0.2); #Eosinphils 0.4 thou/uL (0.0-0.7); #Lymphocytes 3.2 thou/uL (1.20-3.40); #Monocytes 0.5 thou/uL (0.11-0.59); #Neutrophils 3.6 thou/uL (1.40-6.50); %Eosinophils 5.5 % (0.0-10.0); %Lymphocytes 40.8 % (21.0-51.0); %Monocytes 6.5 % (0.0-10.0); %Neutrophils 46.3 % (42.0-75.0); Hemoglobin 12.6 g/dL (12.0-16.0); Mean Corpuscular HGB CONC 32.5 g/dL (32.0-36.0); Mean Corpuscular Hemoglobin 32.1 pg (27.0-31.0); Mean Platelet Volume 7.7 fL (7.4-10.4); Platelet Count 291 thou/uL (130-400); RBC Distribution Width 13.1 % (11.5-14.5); Red Blood Cell (RBC) Count 3.93 mill/uL (4.20-5.40); White Blood Cell (WBC) Count 7.7 thou/uL (4.8-10.8)
[2018-10-04 14:26] LABS: Anion Gap 13 mmol/L (10-20); BUN (Urea Nitrogen) 6 mg/dL (7.0-18.7); Calc. Creatinine Clearance 0 mL/min (70-130); Calcium 8.9 mg/dL (7.8-10.44); Carbon Dioxide 14 mmol/L (22-29); Chloride 111 mmol/L (98-107); Estimated GFR-MDRD 84; Glucose 89 mg/dL (70-105); Potassium 4.5 mmol/L (3.5-5.1); Sodium 133 mmol/L (136-145)
[2018-10-04 15:26] LABS: Carbamazepine-Tegretol 3.8 ug/mL (4.0-12.0)
== END 2018-10-04 17:03 | disposition home or self-care (01) ==
LOC: ERS 13:01
DX: R56.9 Unspecified convulsions (principal); I10 Essential (primary) hypertension; I72.9 Aneurysm of unspecified site; K21.9 Gastro-esophageal reflux disease without esophagitis
CPT/HCPCS: 36415; 80048; 80156; 80184; 80201; 85025; 93005

== ENCOUNTER 2018-12-03 14:00 | Emergency (ER) | payer OTHER | END 2018-12-03 15:00 | disposition home or self-care (01) | LOC: ERS 14:00 | DX: R56.9 Unspecified convulsions (principal); I10 Essential (primary) hypertension; I72.9 Aneurysm of unspecified site; K21.9 Gastro-esophageal reflux disease without esophagitis; Z79.899 Other long term (current) drug therapy | CPT/HCPCS: 99281 ==

== ENCOUNTER 2019-07-27 13:45 | Emergency (ER) | payer OTHER ==
[2019-07-27 14:26] LABS: #Basophils 0.1 thou/uL (0.0-0.2); #Eosinphils 1.1 thou/uL (0.0-0.7); #Lymphocytes 3.2 thou/uL (1.20-3.40); #Monocytes 0.6 thou/uL (0.11-0.59); #Neutrophils 5.1 thou/uL (1.40-6.50); %Basophils 0.8 % (0.0-1.0); %Eosinophils 10.9 % (0.0-10.0); %Lymphocytes 31.7 % (21.0-51.0); %Monocytes 5.9 % (0.0-10.0); %Neutrophils 50.7 % (42.0-75.0); Hemoglobin 12.8 g/dL (12.0-16.0); Mean Corpuscular HGB CONC 33.8 g/dL (32.0-36.0); Mean Corpuscular Hemoglobin 32.7 pg (27.0-31.0); Mean Corpuscular Volume 96.8 fL (78.0-98.0); Mean Platelet Volume 7.9 fL (7.4-10.4); Platelet Count 265 thou/uL (130-400); RBC Distribution Width 13.2 % (11.5-14.5)
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
[2019-07-27 15:11] LABS: ALT (SGPT) 11 U/L (8-55); AST (SGOT) 21 U/L (5-34); Acetaminophen Less than 6.0 mcg/mL (10.0-30.0); Albumin 3.9 g/dL (3.5-5.0); Alcohol Less than 10 mg/dL (Less than 10); Alkaline Phosphatase 92 U/L (40-110); Anion Gap 17 mmol/L (10-20); BUN (Urea Nitrogen) 7 mg/dL (7.0-18.7); Bilirubin, Total 0.2 mg/dL (0.2-1.2); CK (CPK) 112 U/L (29-168); Calc. Creatinine Clearance 0 mL/min (70-130); Calcium 9.1 mg/dL (7.8-10.44); Carbon Dioxide 20 mmol/L (22-29); Chloride 108 mmol/L (98-107); Estimated GFR-MDRD Greater than 90; Globulin 4.3 g/dL (2.4-3.5); Glucose 79 mg/dL (70-105); Lipase 47 U/L (8-78); Protein, Total 8.2 g/dL (6.0-8.3); Salicylate Less than 8.0 mg/dL (15.0-30.0); Sodium 141 mmol/L (136-145)
== END 2019-07-27 15:14 | disposition home or self-care (01) ==
LOC: ERS 13:45
DX: G40.909 Epilepsy, unspecified, not intractable, without status epilepticus (principal); I10 Essential (primary) hypertension; K21.9 Gastro-esophageal reflux disease without esophagitis; Z79.899 Other long term (current) drug therapy
CPT/HCPCS: 70450; 80053; 80307; 82140; 82550; 83690; 84484; 85025; 93005

== ENCOUNTER 2019-07-28 14:46 | Emergency (ER) | payer OTHER | END 2019-07-28 18:35 | disposition home or self-care (01) | LOC: ERS 14:46 | DX: R56.9 Unspecified convulsions (principal); I10 Essential (primary) hypertension; E78.5 Hyperlipidemia, unspecified; K21.9 Gastro-esophageal reflux disease without esophagitis; Z79.899 Other long term (current) drug therapy | CPT/HCPCS: 36416; 80185; 99284 ==

== ENCOUNTER 2019-09-05 22:22 | Emergency (ER) | payer OTHER ==
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
== END 2019-09-06 01:10 | disposition home or self-care (01) ==
LOC: ERS 22:22
DX: S40.021A Contusion of right upper arm, initial encounter (principal); S80.11XA Contusion of right lower leg, initial encounter; E78.5 Hyperlipidemia, unspecified; K21.9 Gastro-esophageal reflux disease without esophagitis; I10 Essential (primary) hypertension; Z79.899 Other long term (current) drug therapy; V43.52XA Car driver injured in collision with other type car in traffic accident, initial encounter

== ENCOUNTER 2019-09-10 20:12 | Emergency (ER) | payer OTHER ==
[2019-09-10 22:07] LABS: BHCG - Serum Negative (NEGATIVE); Pregs Control Background? CLEAR/WHITE (CLR/WHITE); Pregs Control Bar Appear? YES (CONTROL BAR)
[2019-09-10 22:11] LABS: #Basophils 0.1 thou/uL (0.0-0.2); #Eosinphils 0.6 thou/uL (0.0-0.7); #Lymphocytes 4.2 thou/uL (1.20-3.40); #Monocytes 0.6 thou/uL (0.11-0.59); #Neutrophils 4.3 thou/uL (1.40-6.50); %Eosinophils 6.3 % (0.0-10.0); %Lymphocytes 42.6 % (21.0-51.0); %Monocytes 5.9 % (0.0-10.0); %Neutrophils 44.2 % (42.0-75.0); Hemoglobin 11.1 g/dL (12.0-16.0); Mean Corpuscular Hemoglobin 32.6 pg (27.0-31.0); Mean Corpuscular Volume 98.8 fL (78.0-98.0); Mean Platelet Volume 7.5 fL (7.4-10.4); Platelet Count 251 thou/uL (130-400); RBC Distribution Width 12.4 % (11.5-14.5); White Blood Cell (WBC) Count 9.8 thou/uL (4.8-10.8)
[2019-09-10 22:21] LABS: ALT (SGPT) 12 U/L (8-55); AST (SGOT) 14 U/L (5-34); Albumin 3.4 g/dL (3.5-5.0); Alkaline Phosphatase 104 U/L (40-110); Anion Gap 11 mmol/L (10-20); BUN (Urea Nitrogen) 10 mg/dL (7.0-18.7); Bilirubin, Total 0.2 mg/dL (0.2-1.2); Calc. Creatinine Clearance 0 mL/min (70-130); Calcium 8.6 mg/dL (7.8-10.44); Carbon Dioxide 21 mmol/L (22-29); Chloride 111 mmol/L (98-107); Estimated GFR-MDRD 69; Globulin 3.9 g/dL (2.4-3.5); Glucose 89 mg/dL (70-105); Potassium 3.6 mmol/L (3.5-5.1); Protein, Total 7.3 g/dL (6.0-8.3); Sodium 139 mmol/L (136-145)
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
== END 2019-09-11 00:07 | disposition home or self-care (01) ==
LOC: ERS 20:12
DX: G40.909 Epilepsy, unspecified, not intractable, without status epilepticus (principal); K21.9 Gastro-esophageal reflux disease without esophagitis; E78.5 Hyperlipidemia, unspecified; I10 Essential (primary) hypertension; Z79.899 Other long term (current) drug therapy
CPT/HCPCS: 36415; 80053; 84703; 85025

== ENCOUNTER 2019-10-02 17:22 | Emergency (ER) | payer OTHER | END 2019-10-02 18:20 | disposition home or self-care (01) | LOC: ERS 17:22 | DX: M54.2 Cervicalgia (principal); M79.604 Pain in right leg; I10 Essential (primary) hypertension; K21.9 Gastro-esophageal reflux disease without esophagitis; Z79.899 Other long term (current) drug therapy | CPT/HCPCS: 99283 ==

== ENCOUNTER 2019-10-12 22:39 | Observation (INO) | payer OTHER ==
--- NOTE | 2019-10-12 23:19 | CT ---
CT BRAIN NONCONTRAST: DATE: 10/12/2019 11:08 PM HISTORY: 49-year-old female with altered mental status FINDINGS: There is no evidence of acute intra-axial or extra-axial hemorrhage. There is no midline shift or any other mass effect. There is no extra-axial fluid collection. There is no evidence of obstructive hydrocephalus. Calvarium is intact. In the superior portion of the cerebrum, including vertex, involv ing portions of posterior upper frontal lobe and adjacent parietal lobe, there is a moderate size region of encephalomalacia and gliosis. There has been no interval change overall since 07/27/2019 IMPRESSION: 1. No acute intracranial findings. 2. Moderate size region of right upper cerebral old insult.
[2019-10-12 23:31] LABS: Bacteria/HPF 1+ HPF (None Seen); Bilirubin Negative (Negative); Blood, Urine Trace (Negative); Clarity Turbid (Clear); Glucose, Urine (Dipstick) Normal (Negative); Leukocyte 500 Leu/uL (Negative); Nitrite 2+ (Negative); Protein, Urine (Dipstick) 10 mg/dL (Neg-Trace); RBC/HPF 0-3 HPF (0-3); WBC/HPF 21-50 HPF (0-3)
[2019-10-12 23:41] LABS: Medtox Reader # READER 4
[2019-10-12 23:42] LABS: Amphetamine Not Detected (NotDetected); Benzodiazepine Screen Not Detected (NotDetected); Cocaine Metabolite Screen Not Detected (NotDetected); Medtox Control Line Valid? VALID (VALID); Methadone Not Detected (NotDetected); Methamphetamine Not Detected (NotDetected); Opiate Screen Not Detected (NotDetected); Oxycodone Screen Not Detected (NotDetected); Phencyclidine (PCP) Not Detected (NotDetected); THC/Cannabinoid Screen Not Detected (NotDetected); Tricyclic Screen Not Detected (NotDetected)
[2019-10-13 00:09] LABS: #Basophils 0.1 thou/uL (0.0-0.2); #Eosinphils 0.5 thou/uL (0.0-0.7); #Lymphocytes 3.8 thou/uL (1.20-3.40); #Monocytes 0.6 thou/uL (0.11-0.59); #Neutrophils 3.4 thou/uL (1.40-6.50); %Basophils 1.6 % (0.0-1.0); %Eosinophils 5.4 % (0.0-10.0); %Monocytes 6.8 % (0.0-10.0); %Neutrophils 41.1 % (42.0-75.0); Hemoglobin 13.2 g/dL (12.0-16.0); Mean Corpuscular HGB CONC 32.8 g/dL (32.0-36.0); Mean Corpuscular Hemoglobin 31.7 pg (27.0-31.0); Mean Corpuscular Volume 96.7 fL (78.0-98.0); Mean Platelet Volume 7.8 fL (7.4-10.4); Platelet Count 253 thou/uL (130-400); RBC Distribution Width 12.2 % (11.5-14.5); Red Blood Cell (RBC) Count 4.15 mill/uL (4.20-5.40); White Blood Cell (WBC) Count 8.4 thou/uL (4.8-10.8)
[2019-10-13 00:20] LABS: BHCG - Serum Negative (NEGATIVE); Pregs Control Background? CLEAR/WHITE (CLR/WHITE); Pregs Control Bar Appear? YES (CONTROL BAR)
[2019-10-13] MEDS ORDERED: cefTRIAXone\\ROCEPHIN 1 GM VIAL ONE (00:23)
[2019-10-13 00:31] LABS: Acetaminophen Less than 6.0 mcg/mL (10.0-30.0); Alcohol Less than 10 mg/dL (Less than 10); Salicylate Less than 8.0 mg/dL (15.0-30.0)
[2019-10-13 00:32] LABS: ALT (SGPT) 17 U/L (8-55); AST (SGOT) 22 U/L (5-34); Albumin 3.8 g/dL (3.5-5.0); Alkaline Phosphatase 99 U/L (40-110); Anion Gap 10 mmol/L (10-20); BUN (Urea Nitrogen) 12 mg/dL (7.0-18.7); Bilirubin, Total 0.2 mg/dL (0.2-1.2); Calc. Creatinine Clearance 0 mL/min (70-130); Calcium 8.2 mg/dL (7.8-10.44); Carbon Dioxide 19 mmol/L (22-29); Chloride 113 mmol/L (98-107); Estimated GFR-MDRD 67; Globulin 4.3 g/dL (2.4-3.5); Glucose 88 mg/dL (70-105); Potassium 4.1 mmol/L (3.5-5.1); Protein, Total 8.1 g/dL (6.0-8.3); Sodium 138 mmol/L (136-145)
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
[2019-10-13] MEDS ORDERED: Lorazepam 2 MG/ML VIAL SLOW IVP PRN (01:41)
[2019-10-13] MEDS ORDERED: Ondansetron PF 4 MG/2 ML Vial IVP PRN (01:46)
[2019-10-13] MEDS ORDERED: Acetaminophen 325 MG TAB PO PRN (01:46)
[2019-10-13] MEDS ORDERED: Ondansetron ODT 4 MG TAB SL PRN (01:46)
[2019-10-13] MEDS: Lactated Ringer's 1,000 ML IV SCH ×2 (02:06→10:09)
[2019-10-13 02:32] VITALS: BMI 26.6
[2019-10-14] MEDS ORDERED: cefTRIAXone\\ROCEPHIN 2 GM VIAL ONE (01:36)
[2019-10-14] MEDS ORDERED: cefTRIAXone\\ROCEPHIN 1 GM VIAL ONE (01:36)
[2019-10-14] MEDS ORDERED: Sodium Chloride 0.9% 100 ML ONE (01:37)
--- NOTE | 2019-10-14 06:12 | PDOC.FM ---
- Subjective Subjective: Patient is doing well this morning, much more alert and oriented than yesterday morning. She states she was told she had a seizure, she does not recall the seizure or the events immediately before or after the event. She states she is compliant with her medications. She believes her seizure to be related to her menses, as she recently started. She states she has been having irregular cycles and thinks this is contributing. She has not followed up with her PCP for this issue, as she has difficulty with transportation. - Objective MAR Reviewed: Yes Vital Signs & Weight: Vital Signs (12 hours) Temp Pulse Resp BP Pulse Ox 10/14/19 04:00 98.6 F 66 16 97/57 L 95 10/14/19 00:00 97.6 F 86 16 98/54 L 98 10/13/19 20:00 98.5 F 81 16 108/69 91 L Weight Weight 74.979 kg I&O: 10/12/19 10/13/19 10/14/19 06:59 06:59 06:59 Intake Total 600 900 Balance 600 900 Result Diagrams: 10/12/19 23:59 10/12/19 23:59 Phys Exam - Physical Examination Constitutional: NAD HEENT: PERRLA, moist MMs, sclera anicteric Neck: supple, full ROM Respiratory: no wheezing, no rales, no rhonchi, clear to auscultation bilateral Cardiovascular: RRR, no significant murmur, no rub Gastrointestinal: soft, non-tender, no distention Musculoskeletal: no edema, pulses present Neurological: non-focal, normal sensation, moves all 4 limbs Psychiatric: normal affect, A&O x 3 Skin: no rash, normal turgor Dx/Plan (1) Breakthrough seizure Code(s): G40.919 - EPILEPSY, UNSP, INTRACTABLE, WITHOUT STATUS EPILEPTICUS Status: Acute (2) Seizure disorder Code(s): G40.909 - EPILEPSY, UNSP, NOT INTRACTABLE, WITHOUT STATUS EPILEPTICUS Status: Acute (3) UTI (urinary tract infection) Status: Suspected - Plan Plan: Breakthrough seizure, known seizure disorder - Patient cites compliance with medications. Sees Dr. Mclaughlin outpatient. - Home life situation: States she lives w/ her brother. - will monitor on stroke obs - UDS neg, serum drug screen neg - ativan prn for seizures - Will restart home medications today. - Will monitor after restarting home medications and patient can likely be discharged today or tomorrow pending clinical course. UTI - UCx shows pansensitive E. Coli - received rocephin in ED. No need to continue as this is adequate treatment for uncomplicated UTI. Code: Full Diet: regular Fluids: SL VTE ppx: none, fall risk. GI ppx: none Addendum - Attending - Attending Attestation Date/Time: 10/14/19 0915 I personally evaluated the patient and discussed the management with Dr. Carnes. I agree with the History, Examination, Assessment and Plan documented above with any addition or exceptions noted below. Patient back to baseline. Had single seizure in setting of known seizure disorder. Restart meds today. If doing well can likely d/c later today.
[2019-10-14] MEDS: PHENobarbital 32.4 MG TAB PO SCH ×2 (09:34→22:31)
[2019-10-14] MEDS: TOPIRAMATE 200 MG PO SCH ×2 (09:35→22:31)
[2019-10-14] MEDS: OXcarbazepine 300 MG TAB PO SCH ×2 (09:35→22:31)
[2019-10-14 20:37] VITALS: BP 129/59; TEMP 98.4
[2019-10-16 11:10] LABS: Topiramate (Topamax) Test 7.4 ug/mL (2.0-25.0)
[2019-10-16 16:09] LABS: Oxcarbazepine & Metabolite 51 ug/mL (10-35)
[2019-10-17 10:49] LABS: Barbiturates Screen Detected (NotDetected)
== END 2019-10-14 23:07 | disposition home or self-care (01) ==
LOC: ERS 22:39 → 2SE 10-13 01:34
PROVIDERS: ADMIT Student in an Organized Health Care Education/Training Program; ATTEND Student in an Organized Health Care Education/Training Program
DX: G40.919 Epilepsy, unspecified, intractable, without status epilepticus (principal); N39.0 Urinary tract infection, site not specified; B96.20 Unspecified Escherichia coli [E. coli] as the cause of diseases classified elsewhere; K21.9 Gastro-esophageal reflux disease without esophagitis; E78.5 Hyperlipidemia, unspecified; F79 Unspecified intellectual disabilities; I11.0 Hypertensive heart disease with heart failure; I50.9 Heart failure, unspecified; Z79.899 Other long term (current) drug therapy; Z88.0 Allergy status to penicillin; Z88.2 Allergy status to sulfonamides; Z88.8 Allergy status to other drugs, medicaments and biological substances
CPT/HCPCS: 36415; 51701; 70450; 80053; 80183; 80185; 80201; 80306; 80307; 81003; 81015; 84146; 84703; 85025; 87040; 87077; 87086; 87186; 93005; 96365; A4353; G0378; J0696; J3490

== ENCOUNTER 2020-01-03 21:42 | Emergency (ER) | payer OTHER ==
[2020-01-03 23:04] LABS: Bacteria/HPF None Seen HPF (None Seen); Bilirubin Negative (Negative); Blood, Urine 1+ (Negative); Clarity Clear (Clear); Glucose, Urine (Dipstick) Normal (Negative); Leukocyte Negative Leu/uL (Negative); Nitrite Negative (Negative); Protein, Urine (Dipstick) Negative (Neg-Trace); RBC/HPF 0-3 HPF (0-3); Squamous Epithelial 0-3 HPF (0-3); Urobilinogen 3 mg/dL (Less than 2); WBC/HPF 0-3 HPF (0-3)
[2020-01-03 23:11] LABS: #Basophils 0.1 thou/uL (0.0-0.2); #Eosinphils 0.9 thou/uL (0.0-0.7); #Monocytes 0.5 thou/uL (0.11-0.59); %Basophils 1.3 % (0.0-1.0); %Eosinophils 9.8 % (0.0-10.0); %Lymphocytes 41.9 % (21.0-51.0); %Monocytes 5.3 % (0.0-10.0); %Neutrophils 41.7 % (42.0-75.0); Hemoglobin 12.5 g/dL (12.0-16.0); Mean Corpuscular HGB CONC 33.3 g/dL (32.0-36.0); Mean Corpuscular Hemoglobin 32.2 pg (27.0-31.0); Mean Corpuscular Volume 96.8 fL (78.0-98.0); Mean Platelet Volume 7.3 fL (7.4-10.4); Platelet Count 270 thou/uL (130-400); RBC Distribution Width 12.3 % (11.5-14.5); Red Blood Cell (RBC) Count 3.89 mill/uL (4.20-5.40); White Blood Cell (WBC) Count 9.6 thou/uL (4.8-10.8)
[2020-01-03 23:20] LABS: BHCG - Serum Negative (NEGATIVE); Pregs Control Background? CLEAR/WHITE (CLR/WHITE); Pregs Control Bar Appear? YES (CONTROL BAR)
== END 2020-01-03 23:44 | disposition home or self-care (01) ==
LOC: ERS 21:42
DX: N93.9 Abnormal uterine and vaginal bleeding, unspecified (principal); I10 Essential (primary) hypertension; K21.9 Gastro-esophageal reflux disease without esophagitis
CPT/HCPCS: 36415; 81003; 81015; 84703; 85025; 99284

== ENCOUNTER 2020-05-25 21:35 | Emergency (ER) | payer OTHER ==
[2020-05-25 22:14] LABS: #Basophils 0.1 thou/uL (0.0-0.2); #Eosinphils 0.7 thou/uL (0.0-0.7); #Lymphocytes 3.1 thou/uL (1.20-3.40); #Monocytes 0.4 thou/uL (0.11-0.59); #Neutrophils 3.4 thou/uL (1.40-6.50); %Basophils 1.6 % (0.0-1.0); %Eosinophils 8.6 % (0.0-10.0); %Monocytes 5.6 % (0.0-10.0); %Neutrophils 44.2 % (42.0-75.0); Hemoglobin 15.1 g/dL (12.0-16.0); Mean Corpuscular Hemoglobin 31.7 pg (27.0-31.0); Mean Corpuscular Volume 96.1 fL (78.0-98.0); Mean Platelet Volume 7.3 fL (7.4-10.4); Platelet Count 316 thou/uL (130-400); RBC Distribution Width 12.9 % (11.5-14.5); Red Blood Cell (RBC) Count 4.77 mill/uL (4.20-5.40); White Blood Cell (WBC) Count 7.7 thou/uL (4.8-10.8)
[2020-05-25 22:33] LABS: ALT (SGPT) 12 U/L (8-55); AST (SGOT) 19 U/L (5-34); Acetaminophen Less than 6.0 mcg/mL (10.0-30.0); Albumin 4.3 g/dL (3.5-5.0); Alcohol Less than 10 mg/dL (Less than 10); Alkaline Phosphatase 135 U/L (40-110); Anion Gap 16 mmol/L (10-20); BUN (Urea Nitrogen) 13 mg/dL (7.0-18.7); Bilirubin, Total 0.3 mg/dL (0.2-1.2); Calc. Creatinine Clearance 0 mL/min (70-130); Calcium 9.4 mg/dL (7.8-10.44); Carbon Dioxide 18 mmol/L (22-29); Chloride 108 mmol/L (98-107); Estimated GFR-MDRD 62; Globulin 5.2 g/dL (2.4-3.5); Glucose 91 mg/dL (70-105); Potassium 3.7 mmol/L (3.5-5.1); Protein, Total 9.5 g/dL (6.0-8.3); Salicylate Less than 8.0 mg/dL (15.0-30.0); Sodium 138 mmol/L (136-145)
[2020-05-26 00:17] LABS: Bilirubin Negative (Negative); Blood, Urine Negative (Negative); Clarity Turbid (Clear); Glucose, Urine (Dipstick) Normal (Negative); Ketone, Urine Negative (Negative); Leukocyte 500 Leu/uL (Negative); Nitrite Negative (Negative); Protein, Urine (Dipstick) 20 mg/dL (Neg-Trace); WBC/HPF 21-50 HPF (0-3); pH, Urine 6.5 (5.0-9.0)
[2020-05-26 00:18] LABS: Bacteria/HPF 1+ HPF (None Seen)
[2020-05-26 00:19] LABS: Pregnancy Test - Urine (BHCG) Negative (Negative); Pregu Control Background? CLEAR/WHITE (CLR/WHITE); Pregu Control Bar Appear? YES (CONTROL BAR)
[2020-05-26 00:23] LABS: RBC/HPF 0-3 HPF (0-3); Trichomonas/HPF 1+ HPF (None Seen)
[2020-05-26 00:25] LABS: Amphetamine Not Detected (NotDetected); Barbiturates Screen Detected (NotDetected); Benzodiazepine Screen Not Detected (NotDetected); Cocaine Metabolite Screen Not Detected (NotDetected); Medtox Reader # READER 4; Methadone Not Detected (NotDetected); Methamphetamine Not Detected (NotDetected); Opiate Screen Not Detected (NotDetected); Phencyclidine (PCP) Not Detected (NotDetected); THC/Cannabinoid Screen Not Detected (NotDetected); Tricyclic Screen Not Detected (NotDetected)
[2020-05-26 00:26] LABS: Medtox Control Line Valid? VALID (VALID); Oxycodone Screen Not Detected (NotDetected)
[2020-05-26 01:20] LABS: Carbamazepine-Tegretol 3.5 ug/mL (4.0-12.0)
== END 2020-05-26 13:50 | disposition home or self-care (01) ==
LOC: ERS 21:35
DX: G40.909 Epilepsy, unspecified, not intractable, without status epilepticus (principal); A59.9 Trichomoniasis, unspecified; K21.9 Gastro-esophageal reflux disease without esophagitis; E78.5 Hyperlipidemia, unspecified; I11.0 Hypertensive heart disease with heart failure; I50.9 Heart failure, unspecified
CPT/HCPCS: 36415; 80053; 80156; 80306; 80307; 81003; 81015; 81025; 85025; 96360

== ENCOUNTER 2021-10-08 14:33 | Emergency (ER) | payer OTHER ==
[2021-10-08 16:59] LABS: #Eosinphils 0.4 thou/uL (0.0-0.7); #Lymphocytes 2.8 thou/uL (1.20-3.40); #Monocytes 0.6 thou/uL (0.11-0.59); #Neutrophils 6.1 thou/uL (1.40-6.50); %Basophils 0.3 % (0.0-1.0); %Eosinophils 3.6 % (0.0-10.0); %Lymphocytes 28.6 % (21.0-51.0); %Monocytes 6.3 % (0.0-10.0); %Neutrophils 61.2 % (42.0-75.0); Hemoglobin 15.1 g/dL (12.0-16.0); Mean Corpuscular HGB CONC 33.2 g/dL (32.0-36.0); Mean Corpuscular Volume 93.4 fL (78.0-98.0); Mean Platelet Volume 7.5 fL (7.4-10.4); Platelet Count 267 thou/uL (130-400); RBC Distribution Width 12.8 % (11.5-14.5); Red Blood Cell (RBC) Count 4.87 mill/uL (4.20-5.40); White Blood Cell (WBC) Count 9.9 thou/uL (4.8-10.8)
[2021-10-08 17:29] LABS: ALT (SGPT) 15 U/L (8-55); AST (SGOT) 24 U/L (5-34); Alkaline Phosphatase 142 U/L (40-110); Anion Gap 15 mmol/L (10-20); BUN (Urea Nitrogen) 11 mg/dL (7.0-18.7); Bilirubin, Total 0.4 mg/dL (0.2-1.2); Calc. Creatinine Clearance 0 mL/min (70-130); Calcium 9.8 mg/dL (7.8-10.44); Carbon Dioxide 19 mmol/L (22-29); Chloride 107 mmol/L (98-107); Globulin 5.5 g/dL (2.4-3.5); Glucose 84 mg/dL (70-105); Potassium 4.1 mmol/L (3.5-5.1); Protein, Total 9.5 g/dL (6.0-8.3); Sodium 137 mmol/L (136-145)
== END 2021-10-08 17:30 | disposition home or self-care (01) ==
LOC: ERS 14:33
DX: R56.9 Unspecified convulsions (principal); W19.XXXA Unspecified fall, initial encounter; K21.9 Gastro-esophageal reflux disease without esophagitis; I11.0 Hypertensive heart disease with heart failure; I50.9 Heart failure, unspecified; E78.5 Hyperlipidemia, unspecified
CPT/HCPCS: 36415; 71045; 80053; 85025; 93005

== ENCOUNTER 2022-04-27 11:22 | Emergency (ER) | payer OTHER ==
[2022-04-27 12:17] LABS: Hemoglobin 12.7 g/dL (12.0-16.0); Mean Corpuscular HGB CONC 32.4 g/dL (32.0-36.0); Mean Corpuscular Volume 95.8 fL (78.0-98.0); Mean Platelet Volume 8.2 fL (7.4-10.4); Platelet Count 256 thou/uL (130-400); RBC Distribution Width 12.6 % (11.5-14.5); Red Blood Cell (RBC) Count 4.11 mill/uL (4.20-5.40); White Blood Cell (WBC) Count 7.6 thou/uL (4.8-10.8)
[2022-04-27 12:34] LABS: ALT (SGPT) 15 U/L (8-55); AST (SGOT) 30 U/L (5-34); Alkaline Phosphatase 116 U/L (40-110); Anion Gap 14 mmol/L (10-20); BUN (Urea Nitrogen) 22 mg/dL (7.0-18.7); Bilirubin, Total 0.5 mg/dL (0.2-1.2); Calc. Creatinine Clearance 0 mL/min (70-130); Calcium 9.3 mg/dL (7.8-10.44); Carbon Dioxide 25 mmol/L (22-29); Chloride 103 mmol/L (98-107); Estimated GFR 52; Glucose 89 mg/dL (70-105); Potassium 4.5 mmol/L (3.5-5.1); Sodium 137 mmol/L (136-145)
[2022-04-27 12:44] LABS: Eosinophils 1 % (0-10); Lymphocytes 42 % (21-51); MDiff Complete? YES; Monocytes 5 % (0-10); Neutrophil 52 % (42-75); RBC Morphology Normal
== END 2022-04-27 15:36 | disposition home or self-care (01) ==
LOC: ERS 11:22
DX: R55 Syncope and collapse (principal); I11.0 Hypertensive heart disease with heart failure; I50.9 Heart failure, unspecified; K21.9 Gastro-esophageal reflux disease without esophagitis; E78.5 Hyperlipidemia, unspecified; Z79.899 Other long term (current) drug therapy
CPT/HCPCS: 80053; 85025; 93005; 96360; 96361

== ENCOUNTER 2023-05-18 15:54 | Emergency (ER) | payer OTHER ==
[2023-05-18 17:36] LABS: #Basophils 0.1 thou/uL (0.0-0.2); #Eosinphils 0.4 thou/uL (0.0-0.7); #Monocytes 0.6 thou/uL (0.11-0.59); #Neutrophils 5.6 thou/uL (1.40-6.50); %Basophils 0.8 % (0.0-1.0); %Eosinophils 3.8 % (0.0-10.0); %Lymphocytes 34.2 % (21.0-51.0); %Monocytes 5.7 % (0.0-10.0); %Neutrophils 54.8 % (42.0-75.0); Hematocrit 33.6 % (36.0-47.0); Hemoglobin 11.3 g/dL (12.0-16.0); Mean Corpuscular HGB CONC 33.6 g/dL (32.0-36.0); Mean Corpuscular Hemoglobin 31.6 pg (27.0-31.0); Mean Corpuscular Volume 93.9 fl (78.0-98.0); Mean Platelet Volume 9.4 fL (7.4-10.4); Platelet Count 298 10x3/uL (130-400); Red Blood Cell (RBC) Count 3.58 mill/uL (4.20-5.40); White Blood Cell (WBC) Count 10.1 10x3/uL (4.8-10.8)
[2023-05-18 18:01] LABS: Troponin I Less than 0.010 ng/mL (< 0.028)
[2023-05-18 18:04] LABS: ALT (SGPT) 29 U/L (8-55); AST (SGOT) 24 U/L (5-34); Albumin 3.7 g/dL (3.5-5.0); Alkaline Phosphatase 129 U/L (40-110); Anion Gap 13 mmol/L (10-20); BUN (Urea Nitrogen) 8 mg/dL (9.8-20.1); Bilirubin, Total 0.5 mg/dL (0.2-1.2); Calc. Creatinine Clearance 0 mL/min (70-130); Calcium 9.2 mg/dL (7.8-10.44); Carbon Dioxide 19 mmol/L (22-29); Chloride 106 mmol/L (98-107); Estimated GFR 67; Globulin 4.5 g/dL (2.4-3.5); Glucose 89 mg/dL (70-105); Lipase 36 U/L (8-78); Magnesium 1.8 mg/dL (1.6-2.6); Potassium 3.6 mmol/L (3.5-5.1); Protein, Total 8.2 g/dL (6.0-8.3); Sodium 134 mmol/L (136-145)
== END 2023-05-18 19:11 | disposition home or self-care (01) ==
LOC: ERS 15:54
DX: R55 Syncope and collapse (principal); I11.0 Hypertensive heart disease with heart failure; I50.9 Heart failure, unspecified
CPT/HCPCS: 71045; 80053; 83690; 83735; 83880; 84484; 85025; 93005; 96360

== ENCOUNTER 2025-07-02 23:11 | Emergency (ER) | payer MEDICAID, OTHER ==
[2025-07-03 01:30] LABS: #Basophils 0.11 10x3/uL (0.0-0.2); #Eosinophils 0.33 10x3/uL (0.0-0.7); #Monocytes 0.60 10x3/uL (0.11-0.59); #Neutrophils 5.90 10x3/uL (1.40-6.50); %Basophils 0.9 % (0.0-1.0); %Eosinophils 2.8 % (0.0-10.0); %Lymphocytes 40.2 % (21.0-51.0); %Monocytes 5.1 % (0.0-10.0); %Neutrophils 50.2 % (42.0-75.0); Hematocrit 32.4 % (36.0-47.0); Hemoglobin 10.7 g/dL (12.0-16.0); Mean Corpuscular Hemoglobin 30.6 pg (27.0-31.0); Mean Corpuscular Volume 92.6 fL (78.0-98.0); Platelet Count 298 10x3/uL (130-400); Red Blood Cell (RBC) Count 3.50 mill/uL (4.20-5.40); White Blood Cell (WBC) Count 11.75 10x3/uL (4.8-10.8)
[2025-07-03 01:51] LABS: ALT (SGPT) 30 U/L (Less than 34); AST (SGOT) 35 U/L (11-34); Albumin 3.6 g/dL (3.1-4.5); Alkaline Phosphatase 127 U/L (40-110); Anion Gap 14 mmol/L (10-20); BUN (Urea Nitrogen) 25 mg/dL (9.8-20.1); Bilirubin, Total 0.5 mg/dL (0.3-1.2); Calc. Creatinine Clearance 0 mL/min (70-130); Calcium 9.2 mg/dL (7.8-10.44); Carbon Dioxide 20 mmol/L (22-29); Chloride 103 mmol/L (98-107); Globulin 4.6 g/dL (2.4-3.5); Glucose 104 mg/dL (70-105); Potassium 3.2 mmol/L (3.5-5.1); Sodium 134 mmol/L (136-145)
[2025-07-03 01:54] LABS: BHCG - Serum Negative (NEGATIVE); Pregs Control Background? CLEAR/WHITE (CLR/WHITE); Pregs Control Bar Appear? YES (CONTROL BAR)
[2025-07-03 04:07] LABS: Bacteria/HPF 1+ HPF (None Seen); CAUTI Indications for Culture Dysuria,urgency,freq; Glucose, Urine (Dipstick) Normal (Negative); Leukocyte Negative Leu/uL (Negative); Protein, Urine (Dipstick) Negative (Neg-Trace); RBC/HPF 0-3 HPF (0-3); Specific Gravity, Urine 1.032 (1.002-1.036); WBC/HPF 0-3 HPF (0-3)
[2025-07-03 04:08] LABS: Urine Culture Reflex No No
[2025-07-03] MEDS ORDERED: Iopamidol 370 76% 100 ML VIAL ONE (08:22)
== END 2025-07-03 07:21 | disposition home or self-care (01) ==
LOC: ERS 23:11
DX: N39.0 Urinary tract infection, site not specified (principal); R55 Syncope and collapse; E87.6 Hypokalemia; D64.9 Anemia, unspecified; I10 Essential (primary) hypertension
CPT/HCPCS: 70450; 71275; 72125; 74177; 80053; 81001; 83880; 84484; 84703; 85025; 93005; Q9967